=== PATIENT | male | born 1935 | race Caucasian/White ===

== ENCOUNTER → 2020-06-23 09:56 | Outpatient (BNVA) | payer MEDICARE, SELFPAY | PROVIDERS: PCP Internal Medicine Interventional Cardiology; Referring Provider Internal Medicine Interventional Cardiology; Visit Provider Surgery | DX: Z48.815 Encounter for surgical aftercare following surgery on the digestive system (principal) | CPT/HCPCS: 99024; 99212 ==

== ENCOUNTER → 2020-07-28 10:26 | Outpatient (BNVA) | payer MEDICARE, SELFPAY | PROVIDERS: PCP Internal Medicine Interventional Cardiology; Visit Provider Surgery | DX: Z09 Encounter for follow-up examination after completed treatment for conditions other than malignant neoplasm (principal); Z87.19 Personal history of other diseases of the digestive system | CPT/HCPCS: 99212 ==

== ENCOUNTER 2020-12-06 07:21 | Outpatient (REF) | payer MEDICARE, SELFPAY ==
--- NOTE | ~2020-12-06 | XR_ITS ---
EXAMINATION: KNEE X-RAY CLINICAL INFORMATION: Pain COMPARISON: None TECHNIQUE: Standing AP view of both knees and lateral and sunrise view of the left knee FINDINGS: Left knee: Bone alignment is normal. No fracture or dislocation is seen. There is arthritis at the patellofemoral and femoral tibial joints with joint space narrowing and osteophyte formation. There is significant degenerative meniscal calcification. There is no joint effusion. Standing AP view of the right knee demonstrates medial and lateral degenerative meniscal calcification. XR/XR knee standing BI IMPRESSION: Left knee: Arthritis and degenerative meniscal calcification. Right knee: Medial and lateral degenerative meniscal calcification.
--- NOTE | ~2020-12-06 | XR_ITS ---
EXAMINATION: KNEE X-RAY CLINICAL INFORMATION: Pain COMPARISON: None TECHNIQUE: Standing AP view of both knees and lateral and sunrise view of the left knee FINDINGS: Left knee: Bone alignment is normal. No fracture or dislocation is seen. There is arthritis at the patellofemoral and femoral tibial joints with joint space narrowing and osteophyte formation. There is significant degenerative meniscal calcification. There is no joint effusion. Standing AP view of the right knee demonstrates medial and lateral degenerative meniscal calcification. XR/XR knee LT 2V IMPRESSION: Left knee: Arthritis and degenerative meniscal calcification. Right knee: Medial and lateral degenerative meniscal calcification.
== END 2020-12-06 07:22 | disposition home or self-care (01) ==
LOC: HO.HOSX 07:21
PROVIDERS: Visit Provider Orthopaedic Surgery
DX: M11.262 Other chondrocalcinosis, left knee (principal); M65.352 Trigger finger, left little finger
CPT/HCPCS: 73560; 73565; 99202

== ENCOUNTER → 2020-12-21 10:28 | Outpatient (BNVA) | payer MEDICARE, SELFPAY | PROVIDERS: Visit Provider Orthopaedic Surgery | DX: M65.352 Trigger finger, left little finger (principal) | CPT/HCPCS: 20550; 99202; J1100 ==

== ENCOUNTER → 2020-12-24 08:56 | Outpatient (BNVA) | payer MEDICARE, SELFPAY | PROVIDERS: PCP Internal Medicine Interventional Cardiology; Visit Provider Urology | DX: C67.9 Malignant neoplasm of bladder, unspecified (principal); R97.20 Elevated prostate specific antigen [PSA] | CPT/HCPCS: 52000; 99212 ==

== ENCOUNTER 2021-02-09 10:07 | Outpatient (REF) | payer MEDICARE, SELFPAY ==
[2021-02-09 10:45] LABS: MANUAL DIFF FLAG NO
[2021-02-09 11:02] LABS: Basophils Percent Auto 0.4 % (0-2); Eosinophils Absolute Auto 0.2 X10*3/uL (0.0-0.4); Eosinophils Percent Auto 3.1 % (0-4); Hematocrit 40.7 % (42-52); Hemoglobin 13.5 g/dl (14.0-18.0); Imm Gran Abs Auto 0.03 X10*3/uL (0.00-0.03); Imm Gran Pct Auto 0.4 % (0.0-0.4); Lymphocytes Absolute Auto 2.6 X10*3/uL (1.2-4.9); Lymphocytes Percent Auto 35.6 % (20-40); Mean Corpuscular HGB Conc 33.2 g/dl (31.0-36.0); Mean Corpuscular Hemoglobin 31.8 pg (27.0-33.0); Mean Corpuscular Volume 95.8 fL (80-98); Mean Platelet Volume 10.2 fL (9.4-12.4); Monocytes Absolute Auto 0.6 X10*3/uL (0.1-1.2); Monocytes Percent Auto 8.1 % (2-11); Neutrophils Absolute Auto 3.9 X10*3/uL (2.0-8.3); Neutrophils Percent Auto 52.4 % (45-73); Platelet Count 228 X10*3/uL (160-400); Red Blood Count 4.25 X10*6/uL (4.60-5.80); Red Cell Distribution Width 12.2 % (11.0-16.0); White Blood Count 7.4 X10*3/uL (4.8-10.8)
[2021-02-09 11:25] LABS: Alanine Aminotransferase 15 U/L (0-40); Albumin Level 4.2 g/dL (3.5-5.0); Alkaline Phosphatase 88 U/L (39-117); Anion Gap 12 (12-20); Aspartate Amino Transferase 18 U/L (5-37); Blood Urea Nitrogen 14 mg/dL (9-16); Calcium 9.3 mg/dL (8.4-10.2); Carbon Dioxide 27 mmol/L (22-29); Chloride 105 mmol/L (96-108); Cholesterol 171 mg/dL; Estimated Glomerular Filt Rate > 60; Glucose Fasting 93 mg/dL (60-99); HDL Cholesterol 71 mg/dL; Iron 130 mcg/dL (45-160); LDL Cholesterol Calculated 86 mg/dl; Percent Iron Saturation 41 % (15-50); Potassium 4.8 mmol/L (3.3-5.1); Sodium 139 mmol/L (135-145); Total Iron Binding Capacity 317 mcg/dL (228-428); Total Protein 6.4 g/dL (6.5-8.0); Triglycerides 72 mg/dL; Unsaturated Iron Binding 187 ug/dL
[2021-02-09 11:52] LABS: Folate 18.8 ng/mL (> or = 4.0); Vitamin B12 363 pg/mL (200-900)
[2021-02-13 13:52] LABS: Vitamin D 25-OH, D2 <4 ng/mL; Vitamin D 25-OH, D3 45 ng/mL; Vitamin D 25-OH, Total 45 ng/mL (30-100)
== END 2021-02-09 10:08 | disposition home or self-care (01) ==
LOC: HO.LAB 10:07
PROVIDERS: PCP Internal Medicine; Visit Provider Internal Medicine
DX: E55.9 Vitamin D deficiency, unspecified (principal); E78.5 Hyperlipidemia, unspecified; D64.9 Anemia, unspecified
CPT/HCPCS: 36415; 80053; 80061; 82306; 82607; 82746; 83540; 85025

== ENCOUNTER 2021-03-02 09:13 | Outpatient (REF) | payer MEDICARE, SELFPAY ==
--- NOTE | ~2021-03-02 | CT_ITS ---
EXAMINATION: CT ABDOMEN AND PELVIS WITHOUT AND WITH CONTRAST CLINICAL INFORMATION: Other specified disorders of adrenal gland. COMPARISON: CT of the abdomen and pelvis May 2020 TECHNIQUE: Multidetector volumetric imaging was performed of the abdomen and pelvis before and after the IV administration of 85 mL of Omnipaque 350 intravenous contrast. Sagittal and coronal reformatted images were obtained on the technologist's workstation. This CT examination was performed using dose optimization techniques as appropriate, variously including the following: *Automated exposure control *Adjustment of mA and/or kV according to patient size (this includes techniques or standardized protocols for targeted exams where dose is matched to indication/reason for exam; i.e. extremities or head) *Use of iterative reconstruction technique DLP: 609 mGy-cm FINDINGS: LUNG BASES: The visualized lung bases are unremarkable. LIVER, GALLBLADDER, AND BILIARY TREE: The liver is normal in size, shape, and attenuation. No focal hepatic lesion or biliary ductal dilatation is present. The gallbladder is unremarkable with no evidence of radiopaque gallstones, gallbladder wall thickening, or obvious pericholecystic inflammatory changes. PANCREAS: Unremarkable. SPLEEN: Unremarkable. ADRENAL GLANDS: There is a 1.2 x 1.5 cm low-attenuation right adrenal nodule. This is stable from May 2020 exam. Hounsfield units precontrast measure -1. Hounsfield units immediately postcontrast measure 54. Delayed Hounsfield units postcontrast measure 17. Percentage relative washout is 68%. Percentage enhancement washout is 67%. This is consistent with a benign lipid-rich adenoma. There is a 1 cm left adrenal nodule. This is stable from May 2020 exam. Hounsfield units precontrast measure 3. Hounsfield units immediately postcontrast measure 65. Delayed Hounsfield units following IV contrast measure 19. Percentage relative washout is 71%. Percentage enhancement washout is 74%. This is consistent with a benign lipid-rich adenoma. KIDNEYS AND URETERS: The kidneys are normal in size, shape, and attenuation. No hydronephrosis, hydroureter, or calculi seen. No perinephric stranding. BLADDER: The prostate gland is enlarged and protrudes into the base of the bladder. The bladder is otherwise unremarkable. GASTROINTESTINAL TRACT: There is diverticulosis of the colon. There is stool throughout the colon questionable for constipation. Small and large bowel is otherwise unremarkable. There is a small esophageal hernia. ABDOMINAL WALL: There has been interval umbilical hernia repair. No umbilical hernia is seen. There is bulge in the right inguinal region. LYMPH NODES: Normal. VASCULAR: There is evidence of atherosclerotic disease. No aneurysm is seen. PELVIC VISCERA: Prostate gland is enlarged and protrudes into the base of the bladder. Prostate gland measures 4.6 x 6 cm in AP and transverse dimension. The prostate gland is irregularly shaped. OSSEOUS STRUCTURES: There are degenerative changes of the spine and hip joints. There are multiple Schmorl's nodes. There is scoliosis of the lumbar spine. CT/CT abdomen pelvis wo/w con IMPRESSION: Stable bilateral adrenal lesions from May 2020 exam consistent with benign lipid-rich adenomas. No imaging followup indicated. Diverticulosis of the colon. Interval umbilical hernia repair. Small esophageal hernia. Diverticulosis of the colon.
[2021-03-02] MEDS: iohexoL 350 MG/ML 100 ML INFUS..BTL IV (10:37)
== END 2021-03-02 09:14 | disposition home or self-care (01) ==
LOC: HO.CT 09:13
PROVIDERS: Visit Provider Internal Medicine
DX: E27.8 Other specified disorders of adrenal gland (principal)
CPT/HCPCS: 74178; Q9967

== ENCOUNTER 2021-09-15 12:14 | Outpatient (REF) | payer MEDICARE, SELFPAY | END 2021-09-15 12:15 | disposition home or self-care (01) | LOC: HO.HMGCLDS 12:14 | PROVIDERS: Visit Provider Internal Medicine | DX: Z20.822 Contact with and (suspected) exposure to COVID-19 (principal) | CPT/HCPCS: C9803; U0003; U0005 ==

== ENCOUNTER 2021-10-13 10:29 | Outpatient (REF) | payer MEDICARE, SELFPAY ==
[2021-10-13 10:43] LABS: MANUAL DIFF FLAG NO
[2021-10-13 10:51] LABS: Basophils Percent Auto 0.3 % (0-2); Eosinophils Absolute Auto 0.2 X10*3/uL (0.0-0.4); Eosinophils Percent Auto 2.1 % (0-4); Hematocrit 42.9 % (42.0-52.0); Hemoglobin 14.2 g/dl (14.0-18.0); Imm Gran Abs Auto 0.04 X10*3/uL (0.00-0.03); Imm Gran Pct Auto 0.5 % (0.0-0.4); Lymphocytes Absolute Auto 2.4 X10*3/uL (1.2-4.9); Lymphocytes Percent Auto 27.9 % (20-40); Mean Corpuscular HGB Conc 33.1 g/dl (31.0-36.0); Mean Corpuscular Hemoglobin 31.8 pg (27.0-33.0); Mean Corpuscular Volume 96.2 fL (80.0-98.0); Mean Platelet Volume 9.8 fL (9.4-12.4); Monocytes Absolute Auto 0.7 X10*3/uL (0.1-1.2); Monocytes Percent Auto 7.5 % (2-11); Neutrophils Absolute Auto 5.4 x10*3/uL (2.0-8.3); Neutrophils Percent Auto 61.7 % (45-73); Platelet Count 256 X10*3/uL (160-400); Red Blood Count 4.46 X10*6/uL (4.60-5.80); Red Cell Distribution Width 11.9 % (11.0-16.0); White Blood Count 8.7 X10*3/uL (4.8-10.8)
[2021-10-13 11:27] LABS: Alanine Aminotransferase 14 U/L (0-40); Albumin Level 4.3 g/dL (3.5-5.0); Alkaline Phosphatase 106 U/L (39-117); Anion Gap 12 (12-20); Aspartate Amino Transferase 19 U/L (5-37); Bilirubin Total 2.3 mg/dL (0.0-1.0); Blood Urea Nitrogen 13 mg/dL (9-16); Carbon Dioxide 27 mmol/L (22-29); Chloride 104 mmol/L (96-108); Cholesterol 181 mg/dL; Estimated Glomerular Filt Rate > 60; Glucose Fasting 95 mg/dL (60-99); HDL Cholesterol 71 mg/dL; LDL Cholesterol Calculated 95 mg/dl; Potassium 4.4 mmol/L (3.3-5.1); Sodium 139 mmol/L (135-145); Total Protein 6.8 g/dL (6.5-8.0); Triglycerides 77 mg/dL
== END 2021-10-13 10:30 | disposition home or self-care (01) ==
LOC: HO.LAB 10:29
PROVIDERS: PCP Internal Medicine; Visit Provider Internal Medicine
DX: E78.5 Hyperlipidemia, unspecified (principal); D64.9 Anemia, unspecified
CPT/HCPCS: 36415; 80053; 80061; 85025

== ENCOUNTER → 2021-10-20 11:12 | Outpatient (BNVA) | payer MEDICARE, SELFPAY | PROVIDERS: PCP Internal Medicine; Visit Provider Orthopaedic Surgery | DX: M17.0 Bilateral primary osteoarthritis of knee (principal) | CPT/HCPCS: 20610; 99212; J1100 ==

== ENCOUNTER 2021-12-20 13:08 | Outpatient (REF) | payer MEDICARE, SELFPAY ==
[2021-12-20 14:48] LABS: Prostate Specific Antigen 3.08 ng/mL (<0.05-4.0)
== END 2021-12-20 13:09 | disposition home or self-care (01) ==
LOC: HO.LAB 13:08
PROVIDERS: PCP Internal Medicine; Visit Provider Urology
DX: Z12.5 Encounter for screening for malignant neoplasm of prostate (principal); N40.1 Benign prostatic hyperplasia with lower urinary tract symptoms; N13.8 Other obstructive and reflux uropathy; R97.20 Elevated prostate specific antigen [PSA]
CPT/HCPCS: 36415; 84153

== ENCOUNTER 2021-12-27 08:59 | Outpatient (REF) | payer MEDICARE, SELFPAY ==
[2021-12-27 16:39] LABS: Urine Cytology See Pathology rpt
== END 2021-12-27 09:00 | disposition home or self-care (01) ==
LOC: HO.LAB 08:59
PROVIDERS: PCP Internal Medicine; Visit Provider Urology
DX: C67.9 Malignant neoplasm of bladder, unspecified (principal); N40.1 Benign prostatic hyperplasia with lower urinary tract symptoms; N13.8 Other obstructive and reflux uropathy
CPT/HCPCS: 52000; 88112; 99212

== ENCOUNTER 2022-01-06 09:56 | Outpatient (REF) | payer MEDICARE, SELFPAY | END 2022-01-06 09:57 | disposition home or self-care (01) | LOC: HO.LAB 09:56 | PROVIDERS: PCP Internal Medicine; Visit Provider Internal Medicine Endocrinology, Diabetes & Metabolism | DX: E27.8 Other specified disorders of adrenal gland (principal) | CPT/HCPCS: 36415; 82533; 99212 ==

== ENCOUNTER 2022-01-09 08:06 | Outpatient (REF) | payer MEDICARE, SELFPAY ==
[2022-01-09 10:09] LABS: Cortisol Random < 1.0 ug/dL
[2022-01-11 02:36] LABS: DHEA Sulfate 30 mcg/dL (3-225)
[2022-01-13 12:37] LABS: Metanephrine, Free 60 pg/mL (<=57); Normetanephrines, Free 65 pg/mL (<=148); Total Metanephrine, Free 125 pg/mL (<=205)
[2022-01-18 12:25] LABS: Dexamethasone 428 ng/dL
== END 2022-01-09 08:07 | disposition home or self-care (01) ==
LOC: HO.LAB 08:06
PROVIDERS: PCP Internal Medicine; Visit Provider Internal Medicine Endocrinology, Diabetes & Metabolism
DX: E27.8 Other specified disorders of adrenal gland (principal)
CPT/HCPCS: 36415; 80299; 82533; 82627; 83835

== ENCOUNTER 2022-01-24 07:57 | Outpatient (REF) | payer MEDICARE, SELFPAY ==
[2022-01-26 10:21] LABS: Cortisol 30 Minute 29.6 mcg/dL; Cortisol 60 Minute 34.9 mcg/dL; Cortisol 60 Minute Time 3 1013; Cortisol Baseline 18.9 mcg/dL
[2022-01-26 15:51] LABS: Adrenocorticotropic Hormone 13 pg/mL (6-50)
== END 2022-01-24 07:58 | disposition home or self-care (01) ==
LOC: HO.MDS 07:57
PROVIDERS: Visit Provider Internal Medicine Endocrinology, Diabetes & Metabolism
DX: E27.9 Disorder of adrenal gland, unspecified (principal)
CPT/HCPCS: 36415; 82024; 82533; 96374; J0834

== ENCOUNTER 2022-03-31 08:58 | Outpatient (REF) | payer MEDICARE, SELFPAY ==
[2022-03-31 10:15] LABS: Alanine Aminotransferase 16 U/L (0-40); Albumin Level 4.2 g/dL (3.5-5.0); Alkaline Phosphatase 93 U/L (39-117); Anion Gap 14 (12-20); Aspartate Amino Transferase 17 U/L (5-37); Bilirubin Total 2.7 mg/dL (0.0-1.0); Blood Urea Nitrogen 15 mg/dL (9-16); Calcium 9.1 mg/dL (8.4-10.2); Carbon Dioxide 27 mmol/L (22-29); Chloride 105 mmol/L (96-108); Cholesterol 171 mg/dL; Estimated Glomerular Filt Rate > 60; Glucose Fasting 91 mg/dL (60-99); HDL Cholesterol 66 mg/dL; LDL Cholesterol Calculated 89 mg/dl; Potassium 4.6 mmol/L (3.3-5.1); Sodium 141 mmol/L (135-145); Total Protein 6.5 g/dL (6.5-8.0); Triglycerides 82 mg/dL
== END 2022-03-31 08:59 | disposition home or self-care (01) ==
LOC: HO.LAB 08:58
PROVIDERS: PCP Internal Medicine; Visit Provider Internal Medicine
DX: Z00.00 Encounter for general adult medical examination without abnormal findings (principal); E78.5 Hyperlipidemia, unspecified
CPT/HCPCS: 36415; 80053; 80061

== ENCOUNTER 2022-07-13 08:29 | Outpatient (REF) | payer MEDICARE, SELFPAY ==
--- NOTE | ~2022-07-13 | XR_ITS ---
EXAMINATION: XR SHOULDER, LEFT CLINICAL INFORMATION: Shoulder pain. COMPARISON: None TECHNIQUE: 3 views of the left shoulder. FINDINGS: Mild glenohumeral joint arthritis. Mild inferior subluxation of the humeral head with respect to glenoid. No acute fracture or dislocation. Mild acromioclavicular arthritis. There is prominent amorphous calcifications superior to the humeral head on the frontal projection, of uncertain etiology. This could reflect calcific tendinitis, or loose bodies. XR/XR shoulder LT min 2V IMPRESSION: Mild glenohumeral joint arthritis. Mild acromioclavicular arthritis. Amorphous calcification superior to the humeral head, of indeterminate etiology. This could reflect calcific tendinitis or loose bodies. Further evaluation with CT or MRI as clinically warranted.
== END 2022-07-13 08:30 | disposition home or self-care (01) ==
LOC: HO.HOSX 08:29
PROVIDERS: Visit Provider Physician Assistant
DX: M75.22 Bicipital tendinitis, left shoulder (principal); S76.312A Strain of muscle, fascia and tendon of the posterior muscle group at thigh level, left thigh, initial encounter; X58.XXXA Exposure to other specified factors, initial encounter; Y93.9 Activity, unspecified; Y92.9 Unspecified place or not applicable; Y99.9 Unspecified external cause status; Z79.899 Other long term (current) drug therapy
CPT/HCPCS: 73030; 99202

== ENCOUNTER 2022-09-04 15:00 | Outpatient (RCR) | payer MEDICARE, SELFPAY ==
--- NOTE | 2022-07-31 16:41 | MHC.PT.EP ---
[facility] [place] Office [place] Office [place] Office [address] Judith Murphy [address] [phone] F: [phone] F: [phone] F: [phone] F: [phone] Physical Therapy Plan of Care Date of Evaluation: Date of Surgery: n/a Diagnosis: strain of L thigh Assessment: Patient is a 86 year old male presenting to PT with complaints of pain in his L hamstring. Pt reports onset of pain began about a month ago due to insidious onset. He presents today with impairments in pain, hs muscle length, hip strength, knee strength. Pt's current occupation is retired, with baseline physical activities including ADLs, ambulating, stair negotiation, sleep. 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 Clinical presentation today is most consistent with signs and sx associated with possible L hamstring strain and pt will benefit from skilled PT to address the following problems and impairments noted upon evaluation: pain, hs muscle length, hip strength, knee strength,. These problems limit the patient with the following functional activities: ADLs, ambulating, sleep. The prescribed treatment plan of care is medically necessary. Co-morbidities of hx bladder cancer 15 years ago were identified and taken into considerations of plan of care. Pt was educated on HEP, role of PT, prognosis, POC. Frequency and Duration: The patient will be seen 2 x week x 4 weeks Short Term Goals: Pt will demonstrate less restriction with hs muscle length in 2 weeks. Pt will demonstrate improved knee MMT strength to at least 4+/5 in 2 weeks. Pt will demonstrate improved hip MMT strength by 1/3 grade in 2 weeks. Correction Goals: Pt will demonstrate reports of ability to sleep at night with min to no pain in 4 weeks. Pt will demonstrate ability to complete ADLs with min to no pain in 4 weeks. Treatment Plan: Modalities to reduce pain, spasms and effusion. Manual therapy to restore motion and function. Therapeutic exercise to improve strength and flexibility. Neuromuscular re-education for posture and balance. Therapeutic activities to return to functional activities of daily living. Electronically signed by: Antonia Ty, PT, DPT, ATC Please sign and return to therapist. Thank you for your referral.
--- NOTE | 2022-09-04 15:47 | MHC.PT.DC ---
[facility] [place] Office [place] Office [place] Office [address] Judith Murphy [address] [phone] F: [phone] F: [phone] F: [phone] F: [phone] Physical Therapy Discharge Report Diagnosis: strain of L thigh Date of Surgery: n/a Date of Evaluation: 07/31/22 Date of Discharge: 09/04/22 Treatments to Date: 8 Cancellations to Date: 0 No Shows to Date: 0 Discharge Status: Achieved Goals Improved Function Independent with HEP Discharge Summary: 09/04/2022: Pt has made good progress since beginning skilled PT. Occasionally gets some discomfort at times but overall this is less frequent. He is independent and compliant with his HEP and is demonstrating good progress towards/met his goals. At this time max benefits of PT have been provided and skilled PT is no longer indicated at this time. Pt is in agreement with d/c today. Electronically signed by: Antonia Ty, PT, DPT, ATC Please sign and return to therapist. Thank you for your referral.
== END 2022-09-04 15:48 | disposition home or self-care (01) ==
LOC: HO.PTCHIC 15:00
PROVIDERS: PCP Internal Medicine; Visit Provider Physician Assistant
DX: S76.312A Strain of muscle, fascia and tendon of the posterior muscle group at thigh level, left thigh, initial encounter (principal)
CPT/HCPCS: 97110; 97161

== ENCOUNTER 2022-12-20 13:41 | Outpatient (REF) | payer MEDICARE, SELFPAY ==
[2022-12-20 16:51] LABS: Prostate Specific Antigen 3.32 ng/mL (<0.05-4.0)
== END 2022-12-20 13:42 | disposition home or self-care (01) ==
LOC: HO.LAB 13:41
PROVIDERS: PCP Internal Medicine; Visit Provider Urology
DX: N40.1 Benign prostatic hyperplasia with lower urinary tract symptoms (principal); N13.8 Other obstructive and reflux uropathy; Z12.5 Encounter for screening for malignant neoplasm of prostate
CPT/HCPCS: 36415; 84153

== ENCOUNTER 2022-12-27 08:59 | Outpatient (REF) | payer MEDICARE, SELFPAY ==
[2022-12-27 18:10] LABS: Urine Cytology See Pathology rpt
== END 2022-12-27 09:00 | disposition home or self-care (01) ==
LOC: HO.LAB 08:59
PROVIDERS: PCP Internal Medicine; Visit Provider Urology
DX: N40.1 Benign prostatic hyperplasia with lower urinary tract symptoms (principal); R97.20 Elevated prostate specific antigen [PSA]; Z85.51 Personal history of malignant neoplasm of bladder
CPT/HCPCS: 52000; 88112; 99212

== ENCOUNTER → 2023-01-09 12:59 | Outpatient (BNVA) | payer MEDICARE, SELFPAY | PROVIDERS: PCP Internal Medicine; Visit Provider Internal Medicine Endocrinology, Diabetes & Metabolism | DX: E27.8 Other specified disorders of adrenal gland (principal) | CPT/HCPCS: 99212 ==

== ENCOUNTER 2023-01-12 08:31 | Outpatient (REF) | payer MEDICARE, SELFPAY ==
[2023-01-12 11:20] LABS: Cortisol Random 1.5 ug/dL
[2023-01-24 23:24] LABS: Dexamethasone 451 ng/dL
== END 2023-01-12 08:32 | disposition home or self-care (01) ==
LOC: HO.LAB 08:31
PROVIDERS: Visit Provider Internal Medicine Endocrinology, Diabetes & Metabolism
DX: E27.8 Other specified disorders of adrenal gland (principal)
CPT/HCPCS: 36415; 80299; 82533

== ENCOUNTER 2023-03-29 08:38 | Outpatient (REF) | payer MEDICARE, SELFPAY ==
[2023-03-29 08:55] LABS: MANUAL DIFF FLAG NO
[2023-03-29 09:11] LABS: Basophils Absolute Auto 0.1 X10*3/uL (0.0-0.2); Basophils Percent Auto 0.9 % (0-2); Eosinophils Absolute Auto 0.3 X10*3/uL (0.0-0.4); Eosinophils Percent Auto 2.9 % (0-4); Hematocrit 41.4 % (42.0-52.0); Hemoglobin 13.7 g/dl (14.0-18.0); Imm Gran Abs Auto 0.03 X10*3/uL (0.00-0.03); Imm Gran Pct Auto 0.3 % (0.0-0.4); Lymphocytes Absolute Auto 3.4 X10*3/uL (1.2-4.9); Lymphocytes Percent Auto 38.2 % (20-40); Mean Corpuscular HGB Conc 33.1 g/dl (31.0-36.0); Mean Corpuscular Hemoglobin 31.9 pg (27.0-33.0); Mean Corpuscular Volume 96.3 fL (80.0-98.0); Mean Platelet Volume 10.1 fL (9.4-12.4); Monocytes Absolute Auto 0.7 X10*3/uL (0.1-1.2); Monocytes Percent Auto 8.3 % (2-11); Neutrophils Absolute Auto 4.4 x10*3/uL (2.0-8.3); Neutrophils Percent Auto 49.4 % (45-73); Platelet Count 246 X10*3/uL (160-400); Red Cell Distribution Width 12.5 % (11.0-16.0); White Blood Count 8.8 X10*3/uL (4.8-10.8)
[2023-03-29 09:58] LABS: Alanine Aminotransferase 12 U/L (0-40); Albumin Level 4.1 g/dL (3.5-5.0); Alkaline Phosphatase 77 U/L (39-117); Anion Gap 9 (12-20); Aspartate Amino Transferase 16 U/L (5-37); Bilirubin Total 2.2 mg/dL (0.0-1.0); Blood Urea Nitrogen 13 mg/dL (9-16); Calcium 9.7 mg/dL (8.4-10.2); Carbon Dioxide 29 mmol/L (22-29); Chloride 105 mmol/L (96-108); Cholesterol 173 mg/dL; Estimated Glomerular Filt Rate > 60; Glucose Fasting 95 mg/dL (60-99); HDL Cholesterol 70 mg/dL; LDL Cholesterol Calculated 87 mg/dl; Potassium 4.4 mmol/L (3.3-5.1); Sodium 139 mmol/L (135-145); Total Protein 6.5 g/dL (6.5-8.0); Triglycerides 83 mg/dL
[2023-03-29 10:18] LABS: Vitamin D 25-OH Total 49.6 ng/mL (>30)
== END 2023-03-29 08:39 | disposition home or self-care (01) ==
LOC: HO.LAB 08:38
PROVIDERS: PCP Internal Medicine; Visit Provider Internal Medicine
DX: K21.9 Gastro-esophageal reflux disease without esophagitis (principal); E78.5 Hyperlipidemia, unspecified; D64.9 Anemia, unspecified; E55.9 Vitamin D deficiency, unspecified
CPT/HCPCS: 36415; 80053; 80061; 82306; 85025

== ENCOUNTER 2023-04-05 15:57 | Outpatient (AMB) | payer MEDICARE, SELFPAY ==
[2023-04-05 16:04] VITALS: BP 102/60; BMI 24.0
--- NOTE | 2023-04-05 16:04 | A.OFFPC_ITS ---
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: No Accompanied by: Self / Same As Patient Allergies No Known Allergies Allergy (Verified 04/05/23 16:11) Medication List - Last Reconciled 04/05/23 by Elmira Lucio MD cholecalciferol (vitamin D3) 50 mcg PO DAILY finasteride 5 mg PO DAILY 90 days fluticasone propionate 50 mcg/actuation intranasal PRN glucosamine HCl 1,500 mg PO DAILY melatonin 5 mg PO BEDTIME PRN [id number] 200-175-250 mcg (Sathya Multivitamin For Men) tabs PO pantoprazole 40 mg PO DAILY 90 days simvastatin 20 mg PO BEDTIME 90 days triamcinolone acetonide 0.1% appl topical BID PRN Tobacco use date assessed: 09/21/22 Fall risk assessment: No Falls in past year Last assessed Fall Risk: 04/05/23 Dental Screening Dental Screen Date: 04/05/23 Did you have a dental visit in the last 12 months?: Yes Did you have a dental problem in the last 6 months where you did not have access to dental care?: No Was dental information given to patient?: Patient has dentist HPI HPI Comments History of Present Illness Details This is an 87-year-old male that comes for his physical exam. Denies any chest pain or shortness of breath. Labs were discussed. [facility] Medical History Adrenal nodule Barretts esophagus Bladder cancer Dyslipidemia Elevated PSA GERD (gastroesophageal reflux disease) Normocytic anemia Surgical History H/O cataract removal with insertion of prosthetic lens (~2017) H/O prostatectomy (~1985) H/O right inguinal hernia repair (06/14/20) H/O transurethral destruction of bladder lesion (~2005) H/O umbilical hernia repair (06/14/20) Family History Mother Arthritis Father Emphysema of lung Social History Housing: House Alcohol intake: never Patient Tobacco Use Status: Never used Tobacco e-Cigarette/Vaping Use: Never Used Second Hand Smoke Exposure: Yes service: Yes Current occupational status: retired Current occupation: right handed Cognitive needs: No Hearing needs: No Vision needs: No Questionnaire Thrive Questionnaire Date Thrive assessed: 09/21/22 FADI-7 AMB Questionnaire FADI-7 Date FADI - 7 assessed: 09/21/22 Source: Developed by Drs. Wilner Pang, Juani Barkley, Volodymyr Fallon and colleagues, with an educational milad from [employer]. Review of Systems Const All systems reviewed & are unremarkable except as noted in HPI and below Eyes Reports no additional complaints, Denies change in vision and Denies other visual disturbances Card Denies chest pain at rest, Denies chest pain with activity, Denies edema, Denies irregular heart rhythm, Denies claudication, Denies dyspnea, Denies dyspnea on exertion, Denies orthopnea, Denies paroxysmal nocturnal dyspnea and Denies slow heart rate Resp Denies cough, Denies dyspnea and Denies dyspnea on exertion GI Denies abdominal pain, Denies change in bowel habits, Denies excessive flatus, Denies nausea and Denies vomiting Denies urinary hesitancy, Denies urinary incontinence and Denies urinary urgency Musc Denies abnormal gait, Denies atrophy, Denies deformity and Denies limited range of motion Skin/Breast Denies bleeding lesions, Denies changing lesions and Denies rash Neuro Denies abnormal gait and Denies lack of coordination Physical exam (Primary Care) Vital Signs: Last Vital Signs BP 102/60 04/05/23 16:04 BMI result Body Mass Index 24.0 Tobacco/Smoking Status: Tobacco use Status Tobacco use date assessed 09/21/22 04/05/23 16:10 Patient Tobacco Use Status Never used Tobacco 04/05/23 16:10 e-Cigarette/Vaping Use Never Used 04/05/23 16:10 Thrive Assessment: Date of Thrive Assessment Date Thrive assessed 09/21/22 04/05/23 16:10 Const Orientation/consciousness: patient oriented x3 HENMT Head: Yes normal to inspection, Yes normocephalic and Yes atraumatic Ears: external ears normal Eyes General: appearance normal, both eyes and all related structures Eyelids: Yes eyelids normal Conjunctivae: conjunctivae normal Neck Neck: Yes normal visual inspection and Yes supple Resp Effort & Inspection: normal respiratory effort Auscultation: clear to auscultation bilaterally Cardio Jugular venous distension: no JVD Rate: regular rate Rhythm: regular rhythm Heart sounds: S1 normal heart sound present and S2 normal heart sound present GI Inspection: Yes normal to inspection Palpation (GI): Soft to palpation and nontender Auscultation: normal bowel sounds Skin General skin exam: no rashes or lesions noted Neuro General: patient oriented x3 and no focal motor deficits Extrem General: Yes full ROM Psych Appearance: grossly normal Assessment and Plan Assessment & Plan (1) Physical exam: Code(s): Z00.00 - Encounter for general adult medical examination without abnormal findings Plan: Repeat in a year Orders: Orders Comprehensive [place]. Panel Fast 6 Months Z00.00 - Encounter for general adult medical examination without abnormal findings IRON PROFILE 6 Months D64.9 - Anemia, unspecified Lipid Panel 6 Months E78.5 - Hyperlipidemia, unspecified Vitamin D 25-OH Total 6 Months E55.9 - Vitamin D deficiency, unspecified Complete Blood Count Auto Diff 6 Months D64.9 - Anemia, unspecified Coding Level of Care Code Est Pt Prev Care >65y(95290) Diagnoses Physical exam Z00.00 Time Spent (min) 30
== END 2023-04-05 16:22 | disposition home or self-care (01) ==
PROVIDERS: PCP Internal Medicine; Visit Provider Internal Medicine
DX: Z00.00 Encounter for general adult medical examination without abnormal findings (principal)
CPT/HCPCS: 99397

== ENCOUNTER 2023-10-09 14:08 | Outpatient (AMB) | payer MEDICARE, SELFPAY ==
--- NOTE | 2023-10-09 14:13 | A.OFFPC_ITS ---
Vital Signs 10/09/23 14:14 Height 5 ft 6 in Weight 152 lb BMI 24.5 BP 116/70 Blood Pressure Location Lt brachial Position Sitting Intake Visit Reasons: 6 month f/u Intake Note: Patient here for a 6 month follow up Teaching Supervisor Required: No Accompanied by: Self / Same As Patient Allergies No Known Allergies Allergy (Verified 10/09/23 14:29) Medication List - Last Reconciled 10/09/23 by Elmira Lucio MD cholecalciferol (vitamin D3) 50 mcg PO DAILY finasteride 5 mg PO DAILY 90 days fluticasone propionate 50 mcg/actuation intranasal PRN glucosamine HCl 1,500 mg PO DAILY melatonin 5 mg PO BEDTIME PRN [id number] 200-175-250 mcg (Sathya Multivitamin For Men) tabs PO pantoprazole 40 mg PO DAILY 90 days simvastatin 20 mg PO BEDTIME 90 days triamcinolone acetonide 0.1% appl topical BID PRN Tobacco use date assessed: 10/09/23 Fall risk assessment: No Falls in past year Last assessed Fall Risk: 10/09/23 Dental Screening Dental Screen Date: 10/09/23 Did you have a dental visit in the last 12 months?: Yes Did you have a dental problem in the last 6 months where you did not have access to dental care?: No Was dental information given to patient?: Patient has dentist HPI HPI Comments History of Present Illness Details This is an 87-year-old male with GERD, dyslipidemia, BPH and low vitamin-D that comes today for follow-up on his conditions. He needs pantoprazole daily for his heartburn symptoms. Lipid panel will be order in 6 months and cholesterol was stable with statins. Use finasteride for BPH which has decreased urinary symptoms. On vitamin-D supplements for low vitamin-D. Doing well. No chest pain or shortness of breath. [facility] Medical History (Updated 10/09/23 @ 15:44 by Elmira Lucio MD) Normocytic anemia Adrenal nodule Dyslipidemia Elevated PSA Bladder cancer GERD (gastroesophageal reflux disease) Barretts esophagus Surgical History H/O right inguinal hernia repair (06/14/20) H/O umbilical hernia repair (06/14/20) H/O cataract removal with insertion of prosthetic lens (~2017) H/O prostatectomy (~1985) H/O transurethral destruction of bladder lesion (~2005) Family History Mother Arthritis Father Emphysema of lung Social History Housing: House Alcohol intake: never Patient Tobacco Use Status: Never used Tobacco e-Cigarette/Vaping Use: Never Used Second Hand Smoke Exposure: Yes service: Yes Current occupational status: retired Current occupation: right handed Cognitive needs: No Hearing needs: No Vision needs: No Questionnaire PHQ-9 Over the last 2 weeks, how often have you been bothered by any of the following problems? 1. Little interest or pleasure in doing things: not at all 2. Feeling down, depressed, or hopeless: not at all 3. Trouble falling or staying asleep, or sleeping too much: not at all 4. Feeling tired or having little energy: not at all 5. Poor appetite or overeating: not at all 6. Feeling bad about yourself - or that you are a failure or have let yourself or your family down: not at all 7. Trouble concentrating on things, such as reading the newspaper or watching television: not at all 8. Moving or speaking so slowly that other people could have noticed. Or the opposite - being so fidgety or restless that you have been moving around a lot more than usual: not at all 9. Thoughts that you would be better off or of hurting yourself in some way: not at all Total score: 0 Depression Screening Interpretation: Negative Depression Screening Done: Yes 11242 - PHQ-9 Billing: Yes Source: Developed by Drs. Wilner Pang, Juani Barkley, Volodymyr Fallon and colleagues, with an educational milad from [employer]. Thrive Questionnaire Date Thrive assessed: 10/09/23 I am a: Patient What is your living situation today?: I have a steady place to live Within the past 12 months, did the food you bought not last and you didn't have the money to get more?: Never true Within the past 12 months, did you worry whether your food would run out before you got money to buy more?: Never true Do you have trouble paying for medicines?: No Do you have trouble getting transportation to medical appointments?: No Do you have trouble paying your heating and electricity bill?: No Do you have trouble taking care of your child, family member or friend?: No Do you have trouble with day-to-day activities such as bathing, preparing meals, shopping, managing finances, etc.?: No Are you currently unemployed and looking for a job?: No Are you interested in more education?: No Please select the resources that you would like help with: None Currently or been in a relationship where the following occur: no concerns reported THRIVE Score: 0 AUDIT C Alcohol Use Questionnaire (AUDIT-C) 1. How often do you have a drink containing alcohol?: Never Total Score: 0 FADI-7 AMB Questionnaire FADI-7 Date FADI - 7 assessed: 10/09/23 Feeling nervous, anxious, or on edge: 0 = Not at all Not being able to stop or control worryin = Not at all Worrying too much about different things: 0 = Not at all Trouble relaxin = Not at all Being so restless that it is hard to sit still: 0 = Not at all Becoming easily annoyed or irritable: 0 = Not at all Feeling afraid as if something awful might happen: 0 = Not at all Total FADI-7 score (0-4 normal; 5-9 mild; 10-14 moderate; 15-21 severe): 0 Source: Developed by Drs. Wilner Pang, Juani Barkley, Volodymyr Fallon and colleagues, with an educational milad from [employer]. FADI-7 Assessment Billing FADI-7 Assessment Tool: FADI-7 Assessment 46226 Review of Systems Const All systems reviewed & are unremarkable except as noted in HPI and below Eyes Reports no additional complaints, Denies change in vision and Denies other visual disturbances Card Denies chest pain at rest, Denies chest pain with activity, Denies edema, Denies irregular heart rhythm, Denies claudication, Denies dyspnea, Denies dyspnea on exertion, Denies orthopnea, Denies paroxysmal nocturnal dyspnea and Denies slow heart rate Resp Denies cough, Denies dyspnea and Denies dyspnea on exertion GI Denies abdominal pain, Denies change in bowel habits, Denies excessive flatus, Denies nausea and Denies vomiting Denies urinary hesitancy, Denies urinary incontinence and Denies urinary urgency Musc Denies abnormal gait, Denies atrophy, Denies deformity and Denies limited range of motion Skin/Breast Denies bleeding lesions, Denies changing lesions and Denies rash Neuro Denies abnormal gait and Denies lack of coordination Physical exam (Primary Care) Vital Signs: Last Vital Signs BP 116/70 10/09/23 14:14 BMI result Body Mass Index 24.5 Tobacco/Smoking Status: Tobacco use Status Tobacco use date assessed 10/09/23 10/09/23 14:19 Patient Tobacco Use Status Never used Tobacco 10/09/23 14:14 e-Cigarette/Vaping Use Never Used 10/09/23 14:14 PHQ-9: PHQ-9 Score PHQ-9: Total score 0 10/09/23 14:34 Depression Screening Interpretation: Negative Thrive Assessment: Date of Thrive Assessment Date Thrive assessed 10/09/23 10/09/23 14:19 Currently or been in a relationship where the following occur: no concerns reported Eyes General: appearance normal, both eyes and all related structures Eyelids: Yes eyelids normal Conjunctivae: conjunctivae normal Neck Neck: Yes normal visual inspection and Yes supple Resp Effort & Inspection: normal respiratory effort Auscultation: clear to auscultation bilaterally Cardio Jugular venous distension: no JVD Rate: regular rate Rhythm: regular rhythm Heart sounds: S1 normal heart sound present and S2 normal heart sound present Extrem General: Yes full ROM Assessment and Plan Assessment & Plan (1) GERD (gastroesophageal reflux disease): Code(s): K21.9 - Gastro-esophageal reflux disease without esophagitis Plan: Continue PPIs (2) Dyslipidemia: Code(s): E78.5 - Hyperlipidemia, unspecified Plan: Continue statins. Repeat lipid panel in 6 months. (3) BPH w urinary obs/LUTS: Code(s): N40.1 - Benign prostatic hyperplasia with lower urinary tract symptoms; N13.8 - Other obstructive and reflux uropathy Plan: Continue finasteride. (4) Hypovitaminosis D: Code(s): E55.9 - Vitamin D deficiency, unspecified Plan: Continue vitamin-D supplements. Orders: Orders Lipid Panel 6 Months E78.5 - Hyperlipidemia, unspecified IRON PROFILE 6 Months D64.9 - Anemia, unspecified PSA,Total (Free>4and<10) 6 Months Z12.5 - Encounter for screening for malignant neoplasm of prostate Comprehensive [place]. Panel Fast 6 Months E78.5 - Hyperlipidemia, unspecified Vitamin D 25-OH Total 6 Months E55.9 - Vitamin D deficiency, unspecified Complete Blood Count Auto Diff 6 Months D64.9 - Anemia, unspecified Vitamin B12 and Folate 6 Months D64.9 - Anemia, unspecified, E53.8 - Deficiency of other specified B group vitamins Coding Level of Care Code Est Pt Level 4 (55948) Diagnoses GERD (gastroesophageal reflux disease) K21.9 Dyslipidemia E78.5 BPH w urinary obs/LUTS N40.1; N13.8 Hypovitaminosis D E55.9 Additional Codes FADI-7 Assessment Billing - FADI-7 Assessment Tool: FADI-7 Assessment 31489 ([id number]) Time Spent (min) 22
[2023-10-09 14:14] VITALS: BP 116/70; BMI 24.5
== END 2023-10-09 14:35 | disposition home or self-care (01) ==
PROVIDERS: PCP Internal Medicine; Visit Provider Internal Medicine
DX: K21.9 Gastro-esophageal reflux disease without esophagitis (principal); E78.5 Hyperlipidemia, unspecified; N40.1 Benign prostatic hyperplasia with lower urinary tract symptoms; N13.8 Other obstructive and reflux uropathy; E55.9 Vitamin D deficiency, unspecified
CPT/HCPCS: 99214

== ENCOUNTER 2023-12-28 08:46 | Outpatient (AMB) | payer MEDICARE, SELFPAY ==
--- NOTE | 2023-12-28 08:56 | MHC.OFFVIS ---
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 He is a patient of Dr. Onofre. He seen for the following urologic conditions - bladder cancer low-grade - lower urinary tract symptoms Yearly cystoscopy Known Extremely large lateral lobe regrowth from prior prostate procedure Minimal symptoms Continue to follow surveillance Bladder cancer - 2003 low-grade bladder cancer Initial diagnosis 2003 TURBT and 2003 low-grade bladder cancer Cystoscopy 01/05 NAD, 01/06 prostate regrowth. 01/08 NAD Continue to follow yearly Lower urinary tract symptoms Treatment with finasteride PSA 01/03 3.2, 01/04 2.3, 12/06 3.0, 12/07 3.3 Prior prostate procedure Stable with urination. Understands nonspecific nature of PSA testing. [facility] Medical History Normocytic anemia Adrenal nodule Dyslipidemia Elevated PSA Bladder cancer GERD (gastroesophageal reflux disease) Barretts esophagus Surgical History H/O right inguinal hernia repair (06/14/20) H/O umbilical hernia repair (06/14/20) H/O cataract removal with insertion of prosthetic lens (~2017) H/O prostatectomy (~1985) H/O transurethral destruction of bladder lesion (~2005) Family History Mother Arthritis Father Emphysema of lung Social History Housing: House Alcohol intake: never Patient Tobacco Use Status: Never used Tobacco e-Cigarette/Vaping Use: Never Used Second Hand Smoke Exposure: Yes service: Yes Current occupational status: retired Current occupation: right handed Cognitive needs: No Hearing needs: No Vision needs: No Review of Systems Const Denies chills and Denies fever(s) Card Reports no additional complaints and Denies syncope Resp Denies cough GI Denies abdominal pain and Denies heartburn Reports as per HPI and Denies change in libido Neuro Denies syncope Psych Denies change in libido Endo Denies change in libido Physical Exam Const General: cooperative, healthy appearing, comfortable and no acute distress Orientation/consciousness: patient oriented x3 HEENT Face and sinus: Yes normal facial exam Mouth: moist mucous membranes Neck Neck: Yes normal visual inspection, Yes full ROM and Yes trachea midline Chest Chest palpation & inspection: normal inspection of the chest Resp Effort & Inspection: normal respiratory effort, able to speak in complete sentences and no respiratory distress GI Inspection: Yes normal to inspection Back/Spine/Pelvis Cervical Spine: normal cervical lordosis Thoracic/Lumbar Spine: thoracic and lumbar spine normal to inspection Skin General skin exam: no rashes or lesions noted Neuro General: patient oriented x3, gait normal, tone normal and moves all extremities Extrem General: Yes normal to inspection and Yes capillary refill normal Office Procedures Cystoscopy Consent Discussed risk and benefit or proposed procedure with the patient. Information consent for procedure given to the patient. Discussed technical aspects, risks, benefits and alternatives in full. Addressed all of the patient's questions and concerns regarding the procedure. The patient demonstrated knowledge and understanding. They wish to proceed with this procedure. Preparation The patient was prepped in the usual manner. A travel rn was present and in the room. Genitalia was prepped with betadine solution in a sterile manner. Lidocaine Jelly 2% was placed into the urethra and 16Fr flexible Olympus cystoscope was inserted into the meatus after adequate lubrication. Procedure Meatus circumcised Urethra anterior and posterior urethra normal Prostatic Urethra TURP defect with regrowth Bladder examination with retroflexion of cystoscope Bladder Orifices normal shape and position Bladder Capacity normal Trabeculations grade 1 Cellule Formation - Diverticulum Formation - Mucosal Erythema - Bladder Tumor - [id number] DISPOSABLE SCOPE URO-G FLEXIBLE SCOPE Procedure code (CPT) selection complete Office Meds lidocaine HCl 2 % mucosal jelly in applicator Performing Provider: Yoandy Smallwood MD Performing Location[facility] Administered by: Roly Ratliff LPN on 12/28/23 09:12 Dose Route Admin Location Dispensed Lot Number Expiration Date [facility] Pals Specialist 10 mL intra-urethral 10 mL nitrofurantoin monohydrate/macrocrystals 100 mg capsule Performing Provider: Yoandy Smallwood MD Performing Location: [facility] Administered by: Roly Ratliff LPN on 12/28/23 09:12 Dose Route Admin Location Dispensed Lot Number Expiration Date NDC Pals Specialist 100 mg PO 1 cap naproxen 500 mg tablet Performing Provider: Yoandy Smallwood MD Performing Location: [facility] Administered by: Roly Ratliff LPN on 12/28/23 09:12 Dose Route Admin Location Dispensed Lot Number Expiration Date NDC Pals Specialist 500 mg PO 1 tab Results AMB Urinalysis, Automated UA Leukoctes 0 Gerson/uL Last Edit by Nasreen Patel on 12/28/23 09:14 UA Nitrite Negative Last Edit by [employer] Pazalycia on 12/28/23 09:14 UA Urobilinogen 0.2 mg/dL Last Edit by [employer] Paz on 12/28/23 09:14 UA Protein 0 mg/dL Last Edit by [employer] Brandi on 12/28/23 09:14 UA pH 6.0 Last Edit by [employer]ur[employer] Paz on 12/28/23 09:14 UA Blood 10 Paul/uL Last Edit by [employer]anc[employer]oria Patel on 12/28/23 09:14 UA Specific Walton 1.020 Last Edit by [employer] Patel on 12/28/23 09:14 UA Ketone Negative Last Edit by [employer] Paz on 12/28/23 09:14 UA Bilirubin 0 mg/dL Last Edit by [employer] Paz on 12/28/23 09:14 UA Glucose 0 mg/dL Last Edit by [employer] Patel on 12/28/23 09:14 Assessment & Plan Assessment & Plan (1) BPH w urinary obs/LUTS: Code(s): N40.1 - Benign prostatic hyperplasia with lower urinary tract symptoms; N13.8 - Other obstructive and reflux uropathy (2) Bladder cancer: Code(s): C67.9 - Malignant neoplasm of bladder, unspecified Plan Twelve month follow-up office Orders: Orders AMB Cystoscopy Today C67.9 - Malignant neoplasm of bladder, unspecified AMB Urinalysis Automated Today Z13.9 - Encounter for screening, unspecified Patient Instructions: Imaging studies, laboratory and physical exam results were discussed and reviewed in detail. No major barriers to patient understanding were identified. An opportunity to ask questions regarding the treatment plan was provided. All questions were answered. The patient expressed understanding and agreement with the above treatment plan. The patient is aware they should contact our office by phone for worsening of their current condition or the appearance of new urologic symptoms. Compliance is encouraged with any medications and followup testing that is ordered. It is a privilege to participate in the urologic care of your patient. If you have any questions or concerns regarding treatment for the above conditions, or other urologic issues, please do not hesitate to contact me. The office telephone contact is [phone]. This note is constructed using voice recognition software. While every effort has been made to ensure accuracy drill press tender errors may have been included. Yours sincerely, Dr Yoandy Smallwood MD, RE[facility] - Urology Providers of Expert, Compassionate Care for the Genitourinary System Coding Level of Care Code Est Pt Level 4 (41636) Diagnoses BPH w urinary obs/LUTS N40.1; N13.8 Bladder cancer C67.9 CPT Codes Cystoscopy - CPT: 12778-Nzoptwfixl ([id number])
== END 2023-12-28 09:32 | disposition home or self-care (01) ==
PROVIDERS: Visit Provider Urology
DX: N40.1 Benign prostatic hyperplasia with lower urinary tract symptoms (principal); N13.8 Other obstructive and reflux uropathy; C67.9 Malignant neoplasm of bladder, unspecified; Z13.9 Encounter for screening, unspecified
CPT/HCPCS: 52000; 99213

== ENCOUNTER → 2023-12-28 08:46 | Outpatient (BNVA) | payer MEDICARE, SELFPAY | PROVIDERS: Visit Provider Urology | DX: N40.1 Benign prostatic hyperplasia with lower urinary tract symptoms (principal); N13.8 Other obstructive and reflux uropathy; C67.9 Malignant neoplasm of bladder, unspecified | CPT/HCPCS: 52000; 81003; 99212 ==

== ENCOUNTER 2024-01-09 12:51 | Outpatient (AMB) | payer MEDICARE, SELFPAY ==
--- NOTE | 2024-01-09 12:59 | MHC.OFFVIS ---
Vital Signs 01/09/24 13:00 Height 5 ft 6 in Weight 157 lb 10.088 oz BMI 25.4 BP 96/58 L Blood Pressure Location Lt brachial Position Sitting Pulse 55 Pulse Source Pulse Oximeter Intake Visit Reasons: b/l adrenal masses Intake Note: Patient present today for bilateral adrenal masses follow up visit. 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 Accompanied by: Self / Same As Patient Allergies No Known Allergies Allergy (Verified 01/09/24 13:04) Medication List - Last Reconciled 01/09/24 by Wilner Yi MD cholecalciferol (vitamin D3) 50 mcg PO DAILY finasteride 5 mg PO DAILY 90 days fluticasone propionate 50 mcg/actuation intranasal PRN glucosamine HCl 1,500 mg PO DAILY melatonin 5 mg PO BEDTIME PRN [id number] 200-175-250 mcg (Sathya Multivitamin For Men) tabs PO pantoprazole 40 mg PO DAILY 90 days simvastatin 20 mg PO BEDTIME 90 days triamcinolone acetonide 0.1% appl topical BID PRN HPI Comments Details: 88 YO M with PMHx bladder cancer who is seen in consultation at the request of PCP for adrenal incidentaloma. Had CT abdomen/pelvis 03/02/21 for which revealed A.DRENAL GLANDS: There is a 1.2 x 1.5 cm low-attenuation right adrenal nodule. This is stable from May 2020 exam. Hounsfield units precontrast measure -1. Hounsfield units immediately postcontrast measure 54. Delayed Hounsfield units postcontrast measure 17. Percentage relative washout is 68%. Percentage enhancement washout is 67%. This is consistent with a benign lipid-rich adenoma. There is a 1 cm left adrenal nodule. This is stable from May 2020 exam. Hounsfield units precontrast measure 3. Hounsfield units immediately postcontrast measure 65. Delayed Hounsfield units following IV contrast measure 19. Percentage relative washout is 71%. Percentage enhancement washout is 74%. This is consistent with a benign lipid-rich adenoma. Denies history of spells with headache, flushing, diaphoresis, abdominal pain or diarrhea. Denies any weight gain, frequent infections, easy bruisability, development of violaceous striae. no History of HTN, No history of anticoagulant use. Denies any weight loss, orthostatic symptoms, hypoglycemia. Hx history of malignancy many yrs ago or TB. Imaging: Labs: normal plasma metanephrines, a.m. cortisol, dexamethasone suppression test PFSH Medical History Normocytic anemia Adrenal nodule Dyslipidemia Elevated PSA Bladder cancer GERD (gastroesophageal reflux disease) Barretts esophagus Surgical History H/O right inguinal hernia repair (06/14/20) H/O umbilical hernia repair (06/14/20) H/O cataract removal with insertion of prosthetic lens (~2017) H/O prostatectomy (~1985) H/O transurethral destruction of bladder lesion (~2005) Family History Mother Arthritis Father Emphysema of lung Social History Housing: House Alcohol intake: never Patient Tobacco Use Status: Never used Tobacco e-Cigarette/Vaping Use: Never Used Second Hand Smoke Exposure: Yes service: Yes Current occupational status: retired Current occupation: right handed Cognitive needs: No Hearing needs: No Vision needs: No Physical Exam Vital Signs: Last Vital Signs Pulse 55 01/09/24 13:00 BP 96/58 L 01/09/24 13:00 BMI result Body Mass Index 25.4 Assessment & Plan Assessment & Plan (1) Adrenal nodule: Comment: bilateral benign lipid-rich Code(s): E27.8 - Other specified disorders of adrenal gland Category: Medical Plan: This is a 88-year-old white male with a history of bilateral adrenal nodules both with low-density and benign-appearing characteristics on CT scan. workup for hypersecretion was negative. The plan is to for continued observation. Might consider repeating a dexamethasone suppression test next year Coding Level of Care Code Est Pt Level 3 (24688) Diagnoses Adrenal nodule E27.8
[2024-01-09 13:00] VITALS: BP 96/58; PULSE 55; BMI 25.4
== END 2024-01-09 13:14 | disposition home or self-care (01) ==
PROVIDERS: PCP Internal Medicine; Visit Provider Internal Medicine Endocrinology, Diabetes & Metabolism
DX: E27.8 Other specified disorders of adrenal gland (principal)
CPT/HCPCS: 99213

== ENCOUNTER → 2024-01-09 12:51 | Outpatient (BNVA) | payer MEDICARE, SELFPAY | PROVIDERS: Visit Provider Internal Medicine Endocrinology, Diabetes & Metabolism | DX: E27.8 Other specified disorders of adrenal gland (principal) | CPT/HCPCS: 99212 ==

== ENCOUNTER 2024-04-03 08:38 | Outpatient (REF) | payer MEDICARE, SELFPAY ==
[2024-04-03 08:50] LABS: MANUAL DIFF FLAG NO
[2024-04-03 09:39] LABS: Basophils Absolute Auto 0.1 X10*3/uL (0.0-0.2); Basophils Percent Auto 0.6 % (0-2); Eosinophils Absolute Auto 0.2 X10*3/uL (0.0-0.4); Eosinophils Percent Auto 2.3 % (0-4); Hematocrit 42.2 % (42.0-52.0); Hemoglobin 14.1 g/dl (14.0-18.0); Imm Gran Abs Auto 0.04 X10*3/uL (0.00-0.03); Imm Gran Pct Auto 0.4 % (0.0-0.4); Lymphocytes Absolute Auto 3.4 X10*3/uL (1.2-4.9); Lymphocytes Percent Auto 35.6 % (20-40); Mean Corpuscular HGB Conc 33.4 g/dl (31.0-36.0); Mean Corpuscular Hemoglobin 32.2 pg (27.0-33.0); Mean Corpuscular Volume 96.3 fL (80.0-98.0); Mean Platelet Volume 10.4 fL (9.4-12.4); Monocytes Absolute Auto 0.7 X10*3/uL (0.1-1.2); Monocytes Percent Auto 7.1 % (2-11); Neutrophils Absolute Auto 5.1 x10*3/uL (2.0-8.3); Platelet Count 243 X10*3/uL (160-400); Red Blood Count 4.38 X10*6/uL (4.60-5.80); Red Cell Distribution Width 12.4 % (11.0-16.0); White Blood Count 9.4 X10*3/uL (4.8-10.8)
[2024-04-03 10:22] LABS: Alanine Aminotransferase 14 U/L (0-40); Albumin Level 4.1 g/dL (3.5-5.0); Alkaline Phosphatase 79 U/L (39-117); Anion Gap 14 (12-20); Aspartate Amino Transferase 18 U/L (5-37); Bilirubin Total 1.4 mg/dL (0.0-1.0); Blood Urea Nitrogen 14 mg/dL (9-16); Calcium 9.6 mg/dL (8.4-10.2); Carbon Dioxide 26 mmol/L (22-29); Chloride 107 mmol/L (96-108); Cholesterol 177 mg/dL (<200); Estimated Glomerular Filt Rate 57; Glucose Fasting 92 mg/dL (60-99); HDL Cholesterol 72 mg/dL (>40); Iron 101 mcg/dL (45-160); LDL Cholesterol Calculated 91 mg/dL (<100); Percent Iron Saturation 34 % (15-50); Potassium 4.2 mmol/L (3.3-5.1); Sodium 143 mmol/L (135-145); Total Iron Binding Capacity 299 mcg/dL (228-428); Total Protein 6.6 g/dL (6.5-8.0); Triglycerides 71 mg/dL (<150); Unsaturated Iron Binding 198 ug/dL
[2024-04-03 10:38] LABS: Vitamin D 25-OH Total 45.4 ng/mL (>30)
[2024-04-03 11:21] LABS: Folate 12.1 ng/mL (> or = 4.0); Vitamin B12 464 pg/mL (200-900)
[2024-04-03 11:35] LABS: PSA,Total (Free>4and<10) 3.09 ng/mL (0.00-4.00)
== END 2024-04-03 08:39 | disposition home or self-care (01) ==
LOC: HO.LAB 08:38
PROVIDERS: PCP Internal Medicine; Visit Provider Internal Medicine
DX: Z00.00 Encounter for general adult medical examination without abnormal findings (principal); E55.9 Vitamin D deficiency, unspecified; Z12.5 Encounter for screening for malignant neoplasm of prostate; D64.9 Anemia, unspecified; E78.5 Hyperlipidemia, unspecified; E53.8 Deficiency of other specified B group vitamins
CPT/HCPCS: 36415; 80053; 80061; 82306; 82607; 82746; 83540; 84153; 85025

== ENCOUNTER 2024-04-08 13:39 | Outpatient (AMB) | payer MEDICARE, SELFPAY ==
[2024-04-08 13:44] VITALS: BP 92/60; BMI 25.0
--- NOTE | 2024-04-08 13:44 | A.OFFPC_ITS ---
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: No Accompanied by: Self / Same As Patient Allergies No Known Allergies Allergy (Verified 04/08/24 13:56) Medication List - Last Reconciled 04/08/24 by Elmira Lucio MD cholecalciferol (vitamin D3) 50 mcg PO DAILY finasteride 5 mg PO DAILY 90 days fluticasone propionate 50 mcg/actuation intranasal PRN glucosamine HCl 1,500 mg PO DAILY melatonin 5 mg PO BEDTIME PRN [id number] 200-175-250 mcg (Sathya Multivitamin For Men) tabs PO pantoprazole 40 mg PO DAILY 90 days simvastatin 20 mg PO BEDTIME 90 days triamcinolone acetonide 0.1% appl topical BID PRN Tobacco use date assessed: 10/09/23 Fall risk assessment: No Falls in past year Last assessed Fall Risk: 04/08/24 Dental Screening Dental Screen Date: 10/09/23 HPI HPI Comments History of Present Illness Details This is an 88-year-old male that comes for his physical exam. Denies any acute complaints. No need for colonoscopy due to age. [facility] Medical History Normocytic anemia Adrenal nodule Dyslipidemia Elevated PSA Bladder cancer GERD (gastroesophageal reflux disease) Barretts esophagus Surgical History H/O right inguinal hernia repair (06/14/20) H/O umbilical hernia repair (06/14/20) H/O cataract removal with insertion of prosthetic lens (~2017) H/O prostatectomy (~1985) H/O transurethral destruction of bladder lesion (~2005) Family History Mother Arthritis Father Emphysema of lung Social History (Updated 04/08/24 @ 14:01 by Elmira Lucio MD) Housing: House Alcohol intake: current Alcohol intake frequency: holidays/special occasions only Alcohol type: wine Patient Tobacco Use Status: Never used Tobacco e-Cigarette/Vaping Use: Never Used Second Hand Smoke Exposure: Yes service: Yes Current occupational status: retired Current occupation: right handed Cognitive needs: No Hearing needs: No Vision needs: No Questionnaire Thrive Questionnaire Date Thrive assessed: 10/09/23 FADI-7 AMB Questionnaire FADI-7 Date FADI - 7 assessed: 10/09/23 Source: Developed by Drs. Wilner Pang, Juani Barkley, Volodymyr Fallon and colleagues, with an educational milad from [employer]. Review of Systems Const All systems reviewed & are unremarkable except as noted in HPI and below Card Denies chest pain at rest, Denies chest pain with activity, Denies edema, Denies irregular heart rhythm, Denies claudication, Denies dyspnea, Denies dyspnea on exertion, Denies orthopnea, Denies paroxysmal nocturnal dyspnea and Denies slow heart rate Resp Denies cough, Denies dyspnea and Denies dyspnea on exertion GI Denies abdominal pain, Denies change in bowel habits, Denies excessive flatus, Denies nausea and Denies vomiting Physical exam (Primary Care) Vital Signs: Last Vital Signs BP 92/60 04/08/24 13:44 BMI result Body Mass Index 25.0 Tobacco/Smoking Status: Tobacco use Status Tobacco use date assessed 10/09/23 04/08/24 13:49 Patient Tobacco Use Status Never used Tobacco 04/08/24 14:01 e-Cigarette/Vaping Use Never Used 04/08/24 14:01 Thrive Assessment: Date of Thrive Assessment Date Thrive assessed 10/09/23 04/08/24 13:49 [facility] Head: Yes normal to inspection, Yes normocephalic and Yes atraumatic Ears: external ears normal Eyes General: appearance normal, both eyes and all related structures Eyelids: Yes eyelids normal Conjunctivae: conjunctivae normal Neck Neck: Yes normal visual inspection and Yes supple Resp Effort & Inspection: normal respiratory effort Auscultation: clear to auscultation bilaterally Cardio Jugular venous distension: no JVD Rate: regular rate Rhythm: regular rhythm Heart sounds: S1 normal heart sound present and S2 normal heart sound present GI Inspection: Yes normal to inspection Palpation (GI): Soft to palpation and nontender Auscultation: normal bowel sounds Skin General skin exam: no rashes or lesions noted Neuro General: no focal motor deficits Extrem General: Yes full ROM Psych Appearance: grossly normal Assessment and Plan Assessment & Plan (1) Physical exam: Code(s): Z00.00 - Encounter for general adult medical examination without abnormal findings Plan: Repeat in a year. Coding Level of Care Code Est Pt Prev Care >65y(02386) Diagnoses Physical exam Z00.00 Time Spent (min) 30
== END 2024-04-08 14:07 | disposition home or self-care (01) ==
PROVIDERS: PCP Internal Medicine; Visit Provider Internal Medicine
DX: Z00.00 Encounter for general adult medical examination without abnormal findings (principal)
CPT/HCPCS: 99397

== ENCOUNTER 2024-12-26 08:49 | Outpatient (AMB) | payer MEDICARE, SELFPAY ==
--- NOTE | 2024-12-26 08:51 | A.OFFVIS_ITS ---
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 He is a patient of Dr. Onofre. He seen for the following urologic conditions - bladder cancer low-grade - lower urinary tract symptoms Plan check cystoscopy next year Urinary Symptoms Review - Nocturia: 0-1 times per night - Normal urinary stream strength - Post-void residual urine: less than 30 cc - On finasteride therapy with good symptom control Bladder cancer - 2003 low-grade bladder cancer Initial diagnosis 2003 TURBT and 2003 low-grade bladder cancer Cystoscopy 01/05 NAD, 01/06 prostate regrowth. 01/08 NAD Continue to follow yearly Lower urinary tract symptoms Treatment with finasteride PSA 01/03 3.2, 01/04 2.3, 12/06 3.0, 12/07 3.3 Prior prostate procedure Stable with urination. Understands nonspecific nature of PSA testing. [facility] Medical History Normocytic anemia Adrenal nodule Dyslipidemia Elevated PSA Bladder cancer GERD (gastroesophageal reflux disease) Barretts esophagus Surgical History H/O right inguinal hernia repair (06/14/20) H/O umbilical hernia repair (06/14/20) H/O cataract removal with insertion of prosthetic lens (~2017) H/O prostatectomy (~1985) H/O transurethral destruction of bladder lesion (~2005) Family History Mother Arthritis Father Emphysema of lung Social History (Updated 04/08/24 @ 14:01 by Elmira Lucio MD) Housing: House Alcohol intake: current Alcohol intake frequency: holidays/special occasions only Alcohol type: wine Patient Tobacco Use Status: Never used Tobacco e-Cigarette/Vaping Use: Never Used Second Hand Smoke Exposure: Yes service: Yes Current occupational status: retired Current occupation: right handed Cognitive needs: No Hearing needs: No Vision needs: No Review of Systems Const Denies chills and Denies fever(s) Card Reports no additional complaints and Denies syncope Resp Denies cough GI Denies abdominal pain and Denies heartburn Reports as per HPI and Denies change in libido Neuro Denies syncope Psych Denies change in libido Endo Denies change in libido Physical Exam Const General: cooperative, healthy appearing, comfortable and no acute distress Orientation/consciousness: patient oriented x3 HEENT Face and sinus: Yes normal facial exam Mouth: moist mucous membranes Neck Neck: Yes normal visual inspection, Yes full ROM and Yes trachea midline Chest Chest palpation & inspection: normal inspection of the chest Resp Effort & Inspection: normal respiratory effort, able to speak in complete sentences and no respiratory distress GI Inspection: Yes normal to inspection Back/Spine/Pelvis Cervical Spine: normal cervical lordosis Thoracic/Lumbar Spine: thoracic and lumbar spine normal to inspection Skin General skin exam: no rashes or lesions noted Neuro General: patient oriented x3, gait normal, tone normal and moves all extremities Extrem General: Yes normal to inspection and Yes capillary refill normal Office Procedures Post Void Residual Post Residual Void Post Void Residual (PVR): 14 72081-Qujp Void Residual by ultrasound Assessment & Plan Assessment & Plan (1) Elevated PSA: Code(s): R97.20 - Elevated prostate specific antigen [PSA] Category: Medical (2) Bladder cancer: Code(s): C67.9 - Malignant neoplasm of bladder, unspecified Category: Medical (3) BPH w urinary obs/LUTS: Code(s): N40.1 - Benign prostatic hyperplasia with lower urinary tract symptoms; N13.8 - Other obstructive and reflux uropathy Category: Medical Plan Plan Patient reports effective management of urinary symptoms. Finasteride therapy continues. Post-void residual under 30 cc. Nocturia limited to 0-1 times nightly. Current PSA level remains stable. Cystoscopy planned for next year. Refilled finasteride prescription. Follow-up scheduled for continued monitoring. Discussion Notes We discussed the management and progress of the patient's Benign Prostatic Hyperplasia. Current therapy with finasteride remains effective, with improvement in urinary symptoms. I explained the stability of the PSA level and the excellent post-void residual result for his age, emphasizing the non- necessity for immediate invasive intervention. We planned a follow-up cystoscopy next year to monitor his condition. The patient agreed to the management plan and consented to the continuation of current treatments. We confirmed follow-up timing, and I refilled his medication. Environmental conditions were also briefly discussed, providing reassurance for the patient's well-being. Patient Instructions - Continue taking finasteride as prescribed. - Monitor urinary symptoms and report any significant changes. - Follow-up cystoscopy scheduled for next year. - Contact clinic if you have any concerns or experience a change in symptoms. - Prescription for finasteride has been refilled. - Be mindful of weather changes and take precautions as necessary. Medications: Refilled finasteride 5 mg PO DAILY 90 days 90 tabs 3RF Patient Instructions: This note is constructed using voice recognition software. While every effort h as been made to ensure accuracy financial solutions advisor errors may have been included. Imaging studies, laboratory and physical exam results were discussed and reviewed in detail. No major barriers to patient understanding were identified. An opportunity to ask questions regarding the treatment plan was provided. All questions were answered. The patient expressed understanding and agreement with the above treatment plan. The patient is aware they should contact our office by phone for worsening of their current condition or the appearance of new urologic symptoms. Compliance is encouraged with any medications and followup testing that is ordered. It is a privilege to participate in the urologic care of your patient. If you have any questions or concerns regarding treatment for the above conditions, or other urologic issues, please do not hesitate to contact me. The office telephone contact is [phone]. Sincerely, Dr Yoandy Smallwood MD, RE[facility] - Urology Compassionate Specialist Care for the Genitourinary System Coding Level of Care Code Est Pt Level 4 (56819) Complex EM visit Add On G2211 Diagnoses Elevated PSA R97.20 Bladder cancer C67.9 BPH w urinary obs/LUTS N40.1; N13.8 CPT Codes Post Residual Void - PVR CPT Code: 53943-Zfom Void Residual by ultrasound ([id number])
--- OUTSIDE RECORDS SUMMARY | 2024-12-26 09:01 | XMS_ITS | Encounter Summary ---
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 Name Role Phone Unavailable Primary Care Provider Unavailabl e Encounter Details Date Type Department Care Team (Latest Contact Info) Description 12/16/2018 Abstract [facility] Dental, Provider, DDS Social History Tobacco Use Types Packs/Day Years Used Date Smoking Tobacco: Never Assessed Sex and Gender Information Value Date Recorded Sex Assigned at Male 07/17/2022 10:24 AM EDT Legal Sex Male 10:24 AM EDT Gender Identity Male 07/17/2022 10:24 AM EDT Sexual Orientation Straight 07/17/2022 10 :24 AM EDT documented as of this encounter Plan of Treatment Not on file documented as of this encounter Visit Diagnoses Not on filedocumented in this encounter
--- OUTSIDE RECORDS SUMMARY | 2024-12-26 09:01 | XMS_ITS | Clinical Summary ---
Author Organization [employer] Address [address] [place] [address] 7[address] [place] [address] Care Team Providers Care Dry Cell Battery Assembler Name Role Phone Unavailable Primary Care Provider Unavailabl e Social History Tobacco Use Types Packs/Day Years Used Date Smoking Tobacco: Never Assessed Sex and Gender Information Value Date Recorded Sex Assigned at Male 07/17/2022 10:24 AM EDT Legal Sex Male 10:24 AM EDT Gender Identity Male 07/17/2022 10:24 AM EDT Sexual Orientation Straight 07/17/2022 10 :24 AM EDT Plan of Treatment Health Maintenance Due Date Last Done Comments Depression Screening 1937 Lipid Panel 1937 Alcohol/Substance Use Screening 1949 Tobacco Screening 1949 DTaP/Tdap/Td Vaccines (1 - Tdap) 1956 Pneumococcal Vaccine: 50+ Ye ars (1 of 1 - PCV) 12/26/1987 Zoster Vaccines (1 of 2) 12/26/1987 RSV Patients and Pa tients Aged 60 years or older (1 - 1-dose 75+ series) 2012 COVID-19 Vaccine ( - 2023-2 5 season) 2024 Influenza Vaccine (#1) 2024 HIB Vaccines Aged Out No longer eligi ble based on patient's age to complete this topic HPV Vaccines Aged Out No longer eligi ble based on patient's age to complete this topic Hepatitis A Vaccines Aged Out No long er eligible based on patient's age to complete this topic Hepatitis B Vaccines Aged Out No long er eligible based on patient's age to complete this topic IPV Vaccines Aged Out No longer eligi ble based on patient's age to complete this topic Meningococcal Vaccine Aged Out No gabriel sintia eligible based on patient's age to complete this topic RSV under 20 months Aged Out No longe r eligible based on patient's age to complete this topic Rotavirus Vaccines Aged Out No longer eligible based on patient's age to complete this topic
== END 2024-12-26 09:17 | disposition home or self-care (01) ==
LOC: HO.HUSH 08:50
PROVIDERS: PCP Internal Medicine; Visit Provider Urology
DX: R97.20 Elevated prostate specific antigen [PSA] (principal); C67.9 Malignant neoplasm of bladder, unspecified; N40.1 Benign prostatic hyperplasia with lower urinary tract symptoms; N13.8 Other obstructive and reflux uropathy
CPT/HCPCS: 99214; G2211

== ENCOUNTER → 2024-12-26 08:49 | Outpatient (BNVA) | payer MEDICARE, SELFPAY | PROVIDERS: PCP Internal Medicine; Visit Provider Urology | DX: R97.20 Elevated prostate specific antigen [PSA] (principal); C67.9 Malignant neoplasm of bladder, unspecified; N40.1 Benign prostatic hyperplasia with lower urinary tract symptoms; N13.8 Other obstructive and reflux uropathy | CPT/HCPCS: 51798; 99212 ==

== ENCOUNTER 2025-01-06 13:21 | Outpatient (AMB) | payer MEDICARE, SELFPAY ==
--- NOTE | 2025-01-06 13:25 | MHC.OFFVIS ---
Vital Signs 01/06/25 13:27 Height 5 ft 6 in Weight 154 lb 5.177 oz BMI 24.9 BP 124/64 Blood Pressure Location Rt brachial Position Sitting Pulse 55 Pulse Source Pulse Oximeter Pulse Oximetry (%) 95 Oxygen Delivery Method Room Air Intake Visit Reasons: b/l adrenal masses Intake Note: Patient present today for bilateral adrenal masses follow up visit. Delinquency Prevention Social Worker Required: No Accompanied by: Self / Same As Patient Allergies No Known Allergies Allergy (Verified 01/06/25 13:27) Medication List - Last Reconciled 01/06/25 by Wilner Yi MD cholecalciferol (vitamin D3) 50 mcg PO DAILY dexamethasone 1 mg PO ONCE finasteride 5 mg PO DAILY 90 days fluticasone propionate 50 mcg/actuation intranasal PRN glucosamine HCl 1,500 mg PO DAILY melatonin 5 mg PO BEDTIME PRN [id number] 200-175-250 mcg (Sathya Multivitamin For Men) tabs PO pantoprazole 40 mg PO DAILY 90 days simvastatin 20 mg PO BEDTIME 90 days triamcinolone acetonide 0.1% appl topical BID PRN HPI Comments Details: 89 YO M with PMHx bladder cancer who is seen in consultation at the request of PCP for adrenal incidentaloma. Had CT abdomen/pelvis 03/02/21 for which revealed A.DRENAL GLANDS: There is a 1.2 x 1.5 cm low-attenuation right adrenal nodule. This is stable from May 2020 exam. Hounsfield units precontrast measure -1. Hounsfield units immediately postcontrast measure 54. Delayed Hounsfield units postcontrast measure 17. Percentage relative washout is 68%. Percentage enhancement washout is 67%. This is consistent with a benign lipid-rich adenoma. There is a 1 cm left adrenal nodule. This is stable from May 2020 exam. Hounsfield units precontrast measure 3. Hounsfield units immediately postcontrast measure 65. Delayed Hounsfield units following IV contrast measure 19. Percentage relative washout is 71%. Percentage enhancement washout is 74%. This is consistent with a benign lipid-rich adenoma. Denies history of spells with headache, flushing, diaphoresis, abdominal pain or diarrhea. Denies any weight gain, frequent infections, easy bruisability, development of violaceous striae. no History of HTN, No history of anticoagulant use. Denies any weight loss, orthostatic symptoms, hypoglycemia. Hx history of malignancy many yrs ago or TB. Imaging: Labs: normal plasma metanephrines, a.m. cortisol, dexamethasone suppression test The patient is an 89-year-old male presenting with a follow-up visit related to previous adrenal testing. He underwent evaluation for adrenal insufficiency two years ago, which included a cortisol level test that returned normal results. He denies common symptoms associated with adrenal insufficiency, such as unusual sweating, palpitations, or hypertension. Similarly, he denies experiencing more chronic symptoms like unexplained weight loss, weakness, or abnormal stretch yang. [facility] Medical History Normocytic anemia Adrenal nodule Dyslipidemia Elevated PSA Bladder cancer GERD (gastroesophageal reflux disease) Barretts esophagus Surgical History H/O right inguinal hernia repair (06/14/20) H/O umbilical hernia repair (06/14/20) H/O cataract removal with insertion of prosthetic lens (~2017) H/O prostatectomy (~1985) H/O transurethral destruction of bladder lesion (~2005) Family History Mother Arthritis Father Emphysema of lung Social History Housing: House Alcohol intake: current Alcohol intake frequency: holidays/special occasions only Alcohol type: wine Patient Tobacco Use Status: Never used Tobacco e-Cigarette/Vaping Use: Never Used Second Hand Smoke Exposure: Yes service: Yes Current occupational status: retired Current occupation: right handed Cognitive needs: No Hearing needs: No Vision needs: No Physical Exam Vital Signs: Last Vital Signs Pulse 55 01/06/25 13:27 BP 124/64 01/06/25 13:27 Pulse Ox 95 01/06/25 13:27 Oxygen Delivery Method Room Air 01/06/25 13:27 BMI result Body Mass Index 24.9 Const Other: No Cushingoid features Assessment & Plan Assessment & Plan (1) Adrenal nodule: Comment: bilateral benign lipid-rich Code(s): E27.8 - Other specified disorders of adrenal gland Category: Medical Plan: This is a 89-year-old white male with a history of bilateral adrenal nodules both with low-density and benign-appearing characteristics on CT scan. workup for hypersecretion was negative. The plan is to repeat a dexamethasone suppression test . If above is negative, may consider referring back to primary care provider next visit . The patient had an opportunity to ask questions regarding treatment plan. The patient expressed understanding and agreement with the above treatment plan. Patient was informed and verbally consented to the use of an ambient scribe for clinic note documentation during this visit. Orders: Orders Cortisol Random Today E27.8 - Other specified disorders of adrenal gland Dexamethasone Today E27.8 - Other specified disorders of adrenal gland Medications: New dexamethasone 1 mg PO ONCE 1 tab 0RF Coding Level of Care Code Est Pt Level 3 (14404) Diagnoses Adrenal nodule E27.8
[2025-01-06 13:27] VITALS: BP 124/64; PULSE 55; O2SAT 95; BMI 24.9
--- OUTSIDE RECORDS SUMMARY | 2025-01-06 15:48 | XMS_ITS | Encounter Summary ---
Author Organization [employer] Address [address] [place] [address] [address] [place] [address] Care Team Providers Care License Distributor Name Role Phone Unavailable Primary Care Provider Unavailabl e Encounter Details Date Type Department Care Team (Latest Contact Info) Description 12/16/2018 Abstract [facility] CONVERSIONS Dental, Provider, DDS Social History Tobacco [...]
--- OUTSIDE RECORDS SUMMARY | 2025-01-06 15:48 | XMS_ITS | Clinical Summary ---
Author Organization [employer] Address [address] [place] [address] [address] [place] [address] Care Team Providers Care Hand Glass Cutter Name Role Phone Unavailable Primary Care Provider [...]
== END 2025-01-06 13:45 | disposition home or self-care (01) ==
LOC: HO.ENCR 13:21
PROVIDERS: PCP Internal Medicine; Visit Provider Internal Medicine Endocrinology, Diabetes & Metabolism
DX: E27.8 Other specified disorders of adrenal gland (principal)
CPT/HCPCS: 99213

== ENCOUNTER → 2025-01-06 13:21 | Outpatient (BNVA) | payer MEDICARE, SELFPAY | PROVIDERS: PCP Internal Medicine; Visit Provider Internal Medicine Endocrinology, Diabetes & Metabolism | DX: E27.8 Other specified disorders of adrenal gland (principal) | CPT/HCPCS: 99212 ==

== ENCOUNTER 2025-01-16 07:33 | Outpatient (REF) | payer MEDICARE, SELFPAY ==
--- OUTSIDE RECORDS SUMMARY | 2025-01-16 07:35 | XMS_ITS | Encounter Summary ---
Author Organization [employer] Address [address] [place] [address] [address] [place] [address] Care Team Providers Care Lining Stamper Name Role Phone Unavailable Primary Care Provider Unavailabl e Encounter Details Date Type Department Care Team (Latest Contact Info) Description 12/16/2018 Abstract [facility] CONVERSIONS Dental, Provider, DDS Social History Tobacco [...]
--- OUTSIDE RECORDS SUMMARY | 2025-01-16 07:35 | XMS_ITS | Clinical Summary ---
Author Organization [employer] Address [address] [place] [address] [address] [place] [address] Care Team Providers Care Hub Inventory Specialist Name Role Phone Unavailable Primary Care Provider [...]
[2025-01-16 09:32] LABS: Cortisol Random 1.6 ug/dL
[2025-01-26 13:03] LABS: Dexamethasone 292 ng/dL
== END 2025-01-16 07:34 | disposition home or self-care (01) ==
LOC: HO.LAB 07:33
PROVIDERS: PCP Internal Medicine; Visit Provider Internal Medicine Endocrinology, Diabetes & Metabolism
DX: E27.8 Other specified disorders of adrenal gland (principal)
CPT/HCPCS: 36415; 80299; 82533

== ENCOUNTER 2025-04-10 08:29 | Outpatient (REF) | payer MEDICARE, SELFPAY ==
--- OUTSIDE RECORDS SUMMARY | 2025-04-10 08:42 | XMS_ITS | Patient Health Record ---
Author Organization [facility] Address [address] [place] [address] Care Team Providers Care Directory Assistance Operator Name Role Phone Elmira Madera Primary Care Provider UnavailWilner Maddox Unavailable [phone] Jemima ([facility]), David Unavailable Unav ailable Reason For Referral No Information Medications Medication SIG (Take, Route, Frequency, Duration) Notes Start Date End Date Status Vitamin D 2000 UNIT 1 capsule Orally Onc e a day Active Calcium 600mg 1 tablet Orally Once a day Active Ownfgklmsus-Aykaxcpdcbu-QEY -D - Orally Active Finasteride 5 MG 1 tablet Orally Once a day Active Omeprazole 20 MG 1 capsule Orally Onc e a day Active Fish Oil 1000 MG 1 capsule Orally Onc e a day Active Simvastatin 20 MG 1 tablet in the even ing Orally Once a day Active Psyllium Husk Active Problems Problem Type SNOMED Code ICD Code Onset Dates Problem Status W/U Status Risk Notes Problem 977868248 Encounter for screening for malignant neoplasm of colon (Z12.11) Active confirmed Problem 813728453 History of adenomatous polyp of colon (Z86.010) Active confirmed Problem 458852978 Gastroesophageal reflux disease without esophagitis (K21.9) Active confirmed Problem 000638842 Barretts esophag us without dysplasia (K22.70) Active confirmed Plan Of Treatment Pending Test Test Name Order Date GI BIOPSY 06/13/2017 Future Test Test Name Order Date UPPER GI ENDOSCOPY 12/10/2013 COLONOSCOPY 12/10/2013 COLONOSCOPY 03/01/2017 Insurance Providers Payer Name Payer Address Payer Phone Subscriber Number Group Number Insured Name Patient Relationship to Insured Coverage Start Date Coverage End Date [facility] [address] [place] [phone] [id number] DALIA HENSLEY Self - patient is the insured Medical (General) History Medical History History ICD Code Negative screening colonoscopy in 2002 w allison Souza GERD and Moura's Esophagus at 30-34 cm--last EGD in 12/2013--no dysplasia nor esophagitis--Hiatal hernia Colonoscopy in 12/2013--tubul ar adenomas(1 > 1cm at the area of the splenic flexure/distal transverse colon), diverticulosis--- he did have nausea and vomiting after the procedure in relation to the conscious sedation Bladder cancer treated with cystoscopy-- Dr. Omalley III Denies [place],DM,CVA,Lung disease,renal dise ase Hyperlipidemia BPH Sees Dr. Onofre at [facility] Surgical History Surgery Date(Month/Year) Deviated septum Bladder surgery via cystosco py for bladder cancer--he still gets yearly cystoscopies Prostate surgery--? TURP > 30 yrs ago
--- OUTSIDE RECORDS SUMMARY | 2025-04-10 08:42 | XMS_ITS | Encounter Summary ---
Author Organization [employer] Address [address] [facility] [address]t [place] [address] Care Team Providers Care Network Applications Specialist Name Role Phone Unavailable Primary Care Provider Unavailabl e Encounter Details Date Type Department Care Team (Latest Contact Info) Description 12/16/2018 Abstract [facility] CONVERSIONS Dental, Provider, DDS Social History [...]
[2025-04-10 08:57] LABS: MANUAL DIFF FLAG NO
[2025-04-10 09:15] LABS: Hematocrit 40.4 % (42.0-52.0); Hemoglobin 13.9 g/dl (14.0-18.0); Imm Gran Abs Auto 0.04 X10*3/uL (0.00-0.03); Imm Gran Pct Auto 0.4 % (0.0-0.4); Lymphocytes Absolute Auto 3.3 X10*3/uL (1.2-4.9); Mean Corpuscular HGB Conc 34.4 g/dl (31.0-36.0); Mean Corpuscular Hemoglobin 32.7 pg (27.0-33.0); Mean Corpuscular Volume 95.1 fL (80.0-98.0); NRBC Abs Auto 0.000 X10*3/uL (0.0-0.012); NRBC Pct Auto 0.0 /100WBC (0.0-0.2); Platelet Count 248 X10*3/uL (160-400); Red Blood Count 4.25 X10*6/uL (4.60-5.80); White Blood Count 9.6 X10*3/uL (4.8-10.8)
[2025-04-10 09:49] LABS: Alanine Aminotransferase 15 U/L (0-40); Albumin Level 4.3 g/dL (3.5-5.0); Alkaline Phosphatase 92 U/L (39-117); Anion Gap 13 (12-20); Aspartate Amino Transferase 19 U/L (5-37); Blood Urea Nitrogen 14 mg/dL (9-16); Calcium 9.4 mg/dL (8.4-10.2); Carbon Dioxide 27 mmol/L (22-29); Chloride 106 mmol/L (96-108); Cholesterol 176 mg/dL (<200); Estimated Glomerular Filt Rate 57; HDL Cholesterol 69 mg/dL (>40); Iron 88 mcg/dL (45-160); Percent Iron Saturation 31 % (15-50); Potassium 4.5 mmol/L (3.3-5.1); Sodium 141 mmol/L (135-145); Total Iron Binding Capacity 284 mcg/dL (228-428); Total Protein 6.7 g/dL (6.5-8.0); Triglycerides 91 mg/dL (<150); Unsaturated Iron Binding 196 ug/dL
[2025-04-10 10:00] LABS: PSA,Total (Free>4and<10) 3.45 ng/mL (0.00-4.00)
== END 2025-04-10 08:30 | disposition home or self-care (01) ==
LOC: HO.LAB 08:29
PROVIDERS: PCP Internal Medicine; Visit Provider Internal Medicine
DX: K21.9 Gastro-esophageal reflux disease without esophagitis (principal); R35.1 Nocturia; E55.9 Vitamin D deficiency, unspecified; E78.5 Hyperlipidemia, unspecified; D64.9 Anemia, unspecified
CPT/HCPCS: 36415; 80053; 80061; 82306; 83540; 84153; 85025

== ENCOUNTER 2025-04-15 14:21 | Outpatient (AMB) | payer MEDICARE, SELFPAY ==
--- NOTE | 2025-04-15 14:37 | A.OFFPC_ITS ---
Vital Signs 04/15/25 14:38 Height 5 ft 6 in Weight 148 lb BMI 23.9 BP 108/64 Blood Pressure Location Lt brachial Position Sitting Intake Visit Reasons: ANNUAL - see comments Software Controls Engineer Required: No Accompanied by: Self / Same As Patient Allergies No Known Allergies Allergy (Verified 04/15/25 14:47) Medication List - Last Reconciled 04/15/25 by Elmira Lucio MD cholecalciferol (vitamin D3) 50 mcg PO DAILY dexamethasone 1 mg PO ONCE finasteride 5 mg PO DAILY 90 days fluticasone propionate 50 mcg/actuation intranasal PRN glucosamine HCl 1,500 mg PO DAILY melatonin 5 mg PO BEDTIME PRN [id number] 200-175-250 mcg (Sathya Multivitamin For Men) tabs PO pantoprazole 40 mg PO DAILY 90 days simvastatin 20 mg PO BEDTIME 90 days triamcinolone acetonide 0.1% appl topical BID PRN Tobacco use date assessed: 04/15/25 Fall risk assessment: No Falls in past year Last assessed Fall Risk: 04/15/25 Dental Screening Dental Screen Date: 04/15/25 Did you have a dental visit in the last 12 months?: Yes Did you have a dental problem in the last 6 months where you did not have access to dental care?: No Was dental information given to patient?: Patient has dentist HPI HPI Comments History of Present Illness Details The patient is an 89-year-old male presenting with an annual physical examination. He has a history of chronic kidney disease stage 3, with a glomerular filtration rate of 57, which has remained stable since last year. This condition is currently managed with annual monitoring, as it is considered minimal and not significant enough to warrant changes in management. The patient also has a history of hyperlipidemia, for which he is taking simvastatin 20 mg daily. His cholesterol levels are well-controlled, with a total cholesterol of 176 mg/dL and triglycerides of 91 mg/dL. Gastroesophageal reflux disease is another condition the patient manages with pantoprazole, taken every other day unless consuming spicy foods. He is advised to avoid daily use of proton pump inhibitors due to potential side effects such as osteoporosis and low magnesium levels. The patient underwent a transurethral resection of a bladder lesion, which was not cancerous, and he continues to have regular cystoscopies and ultrasounds as follow-up. He experiences occasional constipation, for which he uses laxatives as needed. He is advised to increase water intake and reduce bread consumption to alleviate symptoms. Preventative care includes being up to date with the pneumonia vaccine, received at age 79. [facility] Medical History Normocytic anemia Adrenal nodule Dyslipidemia Elevated PSA Bladder cancer GERD (gastroesophageal reflux disease) Barretts esophagus Surgical History H/O right inguinal hernia repair (06/14/20) H/O umbilical hernia repair (06/14/20) H/O cataract removal with insertion of prosthetic lens (~2017) H/O prostatectomy (~1985) H/O transurethral destruction of bladder lesion (~2005) Family History Mother Arthritis Father Emphysema of lung Social History Housing: House Alcohol intake: current Alcohol intake frequency: holidays/special occasions only Alcohol type: wine Patient Tobacco Use Status: Never used Tobacco e-Cigarette/Vaping Use: Never Used Second Hand Smoke Exposure: Yes service: Yes Current occupational status: retired Current occupation: right handed Cognitive needs: No Hearing needs: No Vision needs: No Questionnaire PHQ-9 Over the last 2 weeks, how often have you been bothered by any of the following problems? 1. Little interest or pleasure in doing things: not at all 2. Feeling down, depressed, or hopeless: not at all 3. Trouble falling or staying asleep, or sleeping too much: not at all 4. Feeling tired or having little energy: not at all 5. Poor appetite or overeating: not at all 6. Feeling bad about yourself - or that you are a failure or have let yourself or your family down: not at all 7. Trouble concentrating on things, such as reading the newspaper or watching television: not at all 8. Moving or speaking so slowly that other people could have noticed. Or the opposite - being so fidgety or restless that you have been moving around a lot more than usual: not at all 9. Thoughts that you would be better off or of hurting yourself in some way: not at all Total score: 0 Depression Screening Interpretation: Negative Depression Screening Done: Yes 84584 - PHQ-9 Billing: Yes Source: Developed by Drs. Wilner Pang, Juani Barkley, Volodymyr Fallon and colleagues, with an educational milad from [employer]. Thrive Questionnaire Date Thrive assessed: 04/15/25 I am a: Patient What is your living situation today?: I have a steady place to live Within the past 12 months, did the food you bought not last and you didn't have the money to get more?: Never true Within the past 12 months, did you worry whether your food would run out before you got money to buy more?: Never true Do you have trouble paying for medicines?: No Do you have trouble getting transportation to medical appointments?: No Do you have trouble paying your heating and electricity bill?: No Do you have trouble taking care of your child, family member or friend?: No Do you have trouble with day-to-day activities such as bathing, preparing meals, shopping, managing finances, etc.?: No Are you currently unemployed and looking for a job?: No Are you interested in more education?: No Please select the resources that you would like help with: None Currently or been in a relationship where the following occur: No concerns reported THRIVE Score: 0 AUDIT C Alcohol Use Questionnaire (AUDIT-C) 1. How often do you have a drink containing alcohol?: Never Total Score: 0 Score Reviewed/Action Taken: No FADI-7 AMB Questionnaire FADI-7 Date FADI - 7 assessed: 04/15/25 Feeling nervous, anxious, or on edge: 0 = Not at all Not being able to stop or control worryin = Not at all Worrying too much about different things: 0 = Not at all Trouble relaxin = Not at all Being so restless that it is hard to sit still: 0 = Not at all Becoming easily annoyed or irritable: 0 = Not at all Feeling afraid as if something awful might happen: 0 = Not at all Total FADI-7 score (0-4 normal; 5-9 mild; 10-14 moderate; 15-21 severe): 0 Source: Developed by Juani Austin. Filippo, Volodymyr Fallon and colleagues, with an educational milad from [employer]. FADI-7 Assessment Billing FADI-7 Assessment Tool: FADI-7 Assessment 99356 Review of Systems Const All systems reviewed & are unremarkable except as noted in HPI and below Card Denies chest pain at rest, Denies chest pain with activity, Denies edema, Denies irregular heart rhythm, Denies claudication, Denies dyspnea, Denies dyspnea on exertion, Denies orthopnea, Denies paroxysmal nocturnal dyspnea and Denies slow heart rate Resp Denies cough, Denies dyspnea and Denies dyspnea on exertion Physical exam (Primary Care) Vital Signs: Last Vital Signs BP 108/64 04/15/25 14:38 BMI result Body Mass Index 23.9 Tobacco/Smoking Status: Tobacco use Status Tobacco use date assessed 04/15/25 04/15/25 14:43 Patient Tobacco Use Status Never used Tobacco 04/15/25 14:43 e-Cigarette/Vaping Use Never Used 04/15/25 14:43 PHQ-9: PHQ-9 Score PHQ-9: Total score 0 04/15/25 14:43 Depression Screening Interpretation: Negative Thrive Assessment: Date of Thrive Assessment Date Thrive assessed 04/15/25 04/15/25 14:43 Currently or been in a relationship where the following occur: No concerns reported HENAR Head: Yes normal to inspection, Yes normocephalic and Yes atraumatic Ears: external ears normal Eyes General: appearance normal, both eyes and all related structures Eyelids: Yes eyelids normal Conjunctivae: conjunctivae normal Neck Neck: Yes normal visual inspection and Yes supple Resp Effort & Inspection: normal respiratory effort Auscultation: clear to auscultation bilaterally Cardio Jugular venous distension: no JVD Rate: regular rate Rhythm: regular rhythm Heart sounds: S1 normal heart sound present and S2 normal heart sound present GI Inspection: Yes normal to inspection Palpation (GI): Soft to palpation and nontender Auscultation: normal bowel sounds Skin General skin exam: no rashes or lesions noted Neuro General: no focal motor deficits Extrem General: Yes full ROM Psych Appearance: grossly normal Coding Level of Care Code Est Pt Prev Care >65y(61719) Diagnoses Physical exam Z00.00 Bladder cancer C67.9 Additional Codes PHQ-9 - 26701 - PHQ-9 Billing: Yes ([id number]) FADI-7 Assessment Billing - FADI-7 Assessment Tool: FADI-7 Assessment 73854 ([id number]) Time Spent (min) 30 Assessment & Plan Assessment & Plan (1) Physical exam: Code(s): Z00.00 - Encounter for general adult medical examination without abnormal findings Category: Medical (2) Bladder cancer: Code(s): C67.9 - Malignant neoplasm of bladder, unspecified Category: Medical Plan The patient will continue with annual monitoring of kidney function, given the stable nature of his chronic kidney disease stage 3. For hyperlipidemia, the patient will maintain his current regimen of simvastatin 20 mg daily, as his cholesterol levels are well-controlled. Management of gastroesophageal reflux disease will involve continued use of pantoprazole every other day, with avoidance of daily use to prevent potential side effects. The patient is advised to take pantoprazole only when consuming spicy foods. Regular follow-up for the bladder lesion will include cystoscopies and ultrasounds, as previously scheduled. For constipation, the patient is encouraged to increase water intake and reduce bread consumption, using laxatives only as needed. Vitamin D supplementation will be reduced from 2000 IU to 1000 IU daily to prevent potential kidney stone formation. Patient was informed and verbally consented to the use of an ambient scribe for clinic note documentation during this visit. Orders: Orders Complete Blood Count Auto Diff 1 Year D64.9 - Anemia, unspecified IRON PROFILE 1 Year D64.9 - Anemia, unspecified PSA,Total (Free>4and<10) 1 Year R35.1 - Nocturia Vitamin D 25-OH Total 1 Year E55.9 - Vitamin D deficiency, unspecified Lipid Panel 1 Year E78.5 - Hyperlipidemia, unspecified Comprehensive [place]. Panel Fast 1 Year Z00.00 - Encounter for general adult medical examination without abnormal findings Medications: New cholecalciferol (vitamin D3) 25 mcg PO DAILY 90 caps 1RF 90 days
[2025-04-15 14:38] VITALS: BP 108/64; BMI 23.9
--- OUTSIDE RECORDS SUMMARY | 2025-04-15 15:05 | XMS_ITS | Encounter Summary ---
Author Organization [employer] Address [address] [facility] [address]t [place] [address] Care Team Providers Care Acid Regenerator Name Role Phone Unavailable Primary Care Provider Unavailabl e Encounter Details Date Type Department Care Team (Latest Contact Info) Description 12/16/2018 Abstract [facility] CONVERSIONS Dental, Provider, DDS Social History Tobacco [...]
--- OUTSIDE RECORDS SUMMARY | 2025-04-15 15:06 | XMS_ITS | Patient Health Record ---
Author Organization [facility] Address [address] [place] [address] Care Team Providers Care Prepress Specialist Name Role Phone [place] Primary Care Provider UnavailWilner Maddox Unavailable [phone] Jemima ([facility]), David Unavailable Unav ailable Reason For Referral No Information Medications Medication SIG (Take, Route, Frequency, Duration) Notes Start Date End Date Status Vitamin D 2000 UNIT 1 capsule Orally Onc e a day Active Calcium 600mg 1 tablet Orally Once a day Active Mavfyvowtfu-Fnulpcceqvm-ORM -D - Orally Active Finasteride 5 MG [...] Problem Status W/U Status Risk Notes Problem 745732001 Encounter for screening for malignant neoplasm of colon (Z12.11) Active confirmed Problem 271542337 History of adenomatous polyp of colon (Z86.010) Active confirmed Problem 795750025 Gastroesophageal reflux disease without esophagitis (K21.9) Active confirmed Problem 899863349 Barretts esophag us without dysplasia (K22.70) Active confirmed Plan Of Treatment Pending Test Test Name Order Date GI BIOPSY 06/13/2017 Future Test Test Name Order Date UPPER GI ENDOSCOPY 12/10/2013 COLONOSCOPY 12/10/2013 COLONOSCOPY 03/01/2017 Insurance Providers Payer Name Payer Address Payer Phone Subscriber Number Group Number Insured Name Patient Relationship to Insured Coverage Start Date Coverage End Date [facility] [address] [place] [phone] [id number] DALIA HENSLEY Self - patient is the [...] treated with cystoscopy-- Dr. Omalley III Denies ND,DM,CVA,Lung disease,renal dise ase Hyperlipidemia BPH Sees Dr. Onofre at [facility] Surgical History Surgery Date(Month/Year) Deviated septum Bladder surgery via cystosco py for bladder cancer--he still gets yearly cystoscopies Prostate surgery--? TURP > 30 yrs ago
== END 2025-04-15 15:02 | disposition home or self-care (01) ==
LOC: HO.HMCH 14:22
PROVIDERS: PCP Internal Medicine; Visit Provider Internal Medicine
DX: Z00.00 Encounter for general adult medical examination without abnormal findings (principal); C67.9 Malignant neoplasm of bladder, unspecified

== ENCOUNTER → 2025-04-15 14:21 | Outpatient (BNVA) | payer MEDICARE, SELFPAY | PROVIDERS: PCP Internal Medicine; Visit Provider Internal Medicine | DX: Z00.00 Encounter for general adult medical examination without abnormal findings (principal); N18.30 Chronic kidney disease, stage 3 unspecified; E78.5 Hyperlipidemia, unspecified; K21.9 Gastro-esophageal reflux disease without esophagitis; K59.00 Constipation, unspecified; C67.9 Malignant neoplasm of bladder, unspecified; R35.1 Nocturia; E55.9 Vitamin D deficiency, unspecified; Z79.899 Other long term (current) drug therapy | CPT/HCPCS: 96127; 99397 ==